=== PATIENT | female | born 1950 | race Caucasian/White ===

== ENCOUNTER 2016-06-27 14:05 | Inpatient (IN) ==
[2016-06-27 18:00] LABS: Basophils % 0.3 % (0.0-0.8); Eosinophils # 0.1 10*3/uL (0.0-0.87); Eosinophils % 1.7 % (0.00-10.9); Hematocrit 40.7 VOL% (35.7-47.0); Hemoglobin 13.3 GM/DL (12.0-16.0); Immature Granulocytes % 0.2 %; Immature Granulocytes Absolute 0.01 #; Lymphocytes % 32.6 % (21.3-54.2); Mean Corpuscular HGB Conc 32.7 GM/DL (32-36); Mean Corpuscular Hemoglobin 31 PG (27-34); Mean Corpuscular Volume 93.8 FL (87-102); Mean Platelet Volume 9.3 FL (9.6-12.0); Monocytes # 0.6 10*3/uL (0.11-0.8); Monocytes % 9.9 % (1.7-12.7); Neutrophils # 3.3 10*3/uL (1.4-7.4); Neutrophils % 55.3 % (38.7-73.9); Platelet Count 221 T/CUMM (130-400); Red Blood Count 4.34 MC/CUMM (3.8-5.5); Red Cell Distribution Width 12.1 % (9.3-17.3)
[2016-06-27 18:10] LABS: PT Patient Result 10.9 SECS
[2016-06-27 18:21] LABS: Albumin 3.6 G/DL (3.4-5.0); Bilirubin,Total 0.7 MG/DL (0.2-1.0); Calcium 9.2 MG/DL (8.5-10.1); Magnesium 2.1 MG/DL (1.8-2.4); Osmolality,Calculated 281.7 MOS/KG (273-304); Total Protein 6.8 G/DL (6.4-8.3)
--- NOTE | 2016-06-27 18:38 | Emergency Department Note ---
Josemanuel Toscano Hilary, am scribing for, and in the presence of, Clay Walsh MD 16:59. Jillian Toscano Phillip K, MD, personally performed the services described in this documentation, ascribed by Tatianna Abernathy in my presence, and it is both accurate and complete 838 . Arrival - Arrival Chief Complaint: GI Bleed/Rectal Stated Complaint: bleeding from rectum ED Nursing Triage Note: PT REPORTS BRIGHT RED RECTAL BLEEDING AFTER BOWEL MOVEMENT, ONSET APPROX 1 HOUR BELT NOTCHER. PT HAD THIS HAPPEN 1 WEEK AGO ALSO AND WAS SEEN BY DR BARCENAS- STATES HE TOOK HER OFF ELIQUIS AT THAT TIME. PT C/O LOWER BACK PAIN Mode of Arrival: Ambulatory Limitations: No Limitations Source: Patient, RN Notes Reviewed - History of Present Illness HPI Narrative: Pt is a 65 y/o female presenting to the ED with c/o of rectal bleeding onset of this afternoon. She states that she had this happen a week ago and was seen by Dr. Barcenas. Pt confirms lower back pain and being thirsty but denies, N/V, abdominal pain or dizziness. She has has a PMHx of Hemorrhoids. No other complaints or problems stated in the ED. Onset (ago): hour(s) Date of Last Menstrual Period: HYST Allergies/Adverse Reactions: Allergies Allergy/AdvReac Type Severity Reaction Status Date / Time STEROIDS AdvReac Confusion Uncoded 06/27/16 14:23 Home Medications: Home Medications Medication Instructions Recorded Confirmed Type Aspirin [Ecotrin] 324 mg PO DAILY 09/11/14 06/27/16 History Diclofenac Sodium Tab [Voltaren] 75 mg PO BID 09/11/14 06/27/16 History Imipramine [Tofranil] 150 mg PO BEDTIME 09/11/14 06/27/16 History LORazepam [Lorazepam] 1 mg PO PRN PRN 09/11/14 06/27/16 History Pravastatin [Pravachol] 20 mg PO BEDTIME 09/11/14 06/27/16 History rOPINIRole [Requip] 3 mg PO BEDTIME 09/11/14 06/27/16 History Levothyroxine Tab [Synthroid Tab] 88 mcg PO DAILY 06/27/16 06/27/16 History Magnesium Chloride [Magnesium Dr] 64 mg PO BID 06/27/16 06/27/16 History Nebivolol [Bystolic] 10 mg PO DAILY 06/27/16 06/27/16 History Sotalol HCl [Sotalol] 160 mg PO BID 06/27/16 06/27/16 History Review of System - Review of System 12 point system: reviewed and no additional remarkable complaints except as stated - Review of System Cardiovascular: Absent: chest pain Gastrointestinal: Present: hematochezia. Absent: abdominal pain, nausea, vomiting Musculoskeletal: Present: lower back pain Neurological: Absent: other (Dizziness) Medical,Surgical,& Family Hx - Medical History Psychological: History of: Depression Neurology: No history of: Seizures HEENT: Comment Only: Eye Problem (GLASSES) Endocrine: History of: Dyslipidemia Rheumatology: History of;: Rheumatological Problems Genitourinary: History of: Bladder Problem (INCONTIENCE), Kidney Stones Gastrointestinal: History of: Gastrointestinal Bleed, Hemorrhoids, GI Problems ( HIATAL HERNIA) Musculoskeletal: History of: Herniated Disk, Osteoporosis, Musculoskeletal Problems (SPINAL STENOSIS, BULGING DISKS) Reproductive: History of: Ovarian Cysts - Surgical History HEENT Surgeries: Surgical HX of: Eye Surgery (BILATERAL CATARACT), Tonsilectomy & Adenoidectomy Abdominal Surgeries: Surgical HX of: Abdominal Surgery, Appendectomy, Cholecystectomy, Colonoscopy, EGD Reproductive Surgeries: Surgical HX of;: Breast Surgery (RIGHT LUMPECTOMY), Genitourinary Surgery (BLADDER SLING), Gynecologic Surgery, Hysterectomy Orthopedic Surgeries: Surgical HX of;: Total Knee Replacement (RIGHT KNEE) - Family History Family History: Reports;: Family Cancer (BROTHER), Family Diabetes (SON), Family Heart Disease (FATHER) - Social History Smoking Status: Never smoker Frequency of Alcohol Use: None Type of Drug Use: None Exam Vital Signs: Vital Signs Temperature 97.6 F 06/27/16 14:19 Pulse Rate 59 L 06/27/16 14:19 Respiratory Rate 16 06/27/16 14:19 Blood Pressure 109/72 06/27/16 14:19 O2 Sat by Pulse Oximetry 97 06/27/16 14:19 - General General appearance: alert, in no apparent distress - Head Head exam: Present: atraumatic, normocephalic - Eye Eye exam: Present: normal appearance, PERRL, EOMI - ENT ENT exam: Present: mucous membranes moist, TM's normal bilaterally. Absent: mucous membranes dry - Neck Neck exam: Present: full ROM, trachea midline. Absent: tenderness, meningismus , lymphadenopathy, thyromegaly - Chest Chest inspection: Present: symmetric chest wall rise. Absent: tenderness - Respiratory Respiratory exam: Present: normal lung sounds bilaterally. Absent: respiratory distress - Cardiovascular Cardiovascular exam: Present: regular rate, normal rhythm, normal heart sounds. Absent: murmur, rubs, gallop - Abdominal Exam Abdominal exam: Present: soft, normal bowel sounds. Absent: distention, tenderness - Rectal Exam Rectal exam: Present: heme (+) stool, hemorrhoids (Hemorrhidal tag but no bleeding) - Extremities Exam Extremities exam: Present: full ROM. Absent: tenderness - Back Exam Back exam: Present: full ROM. Absent: tenderness - Neurological Exam Neurological exam: Present: alert, oriented X3, CN II-XII intact. Absent: motor sensory deficit - Psychiatric Psychiatric exam: Present: normal affect, normal mood - Skin Skin exam: Present: warm, dry, intact, normal color. Absent: rash Results - Labs CBC & BMP: 06/27/16 17:50 06/27/16 17:50 Lab Results: I have reviewed the patients labs Labs: Laboratory Tests 06/27/16 17:50 WBC 6.0 RBC 4.34 Hgb 13.3 Hct 40.7 MPV 9.3 L Disposition Clinical Impression: Lower gastrointestinal hemorrhage, Dehydration Case discussed with: patient, patient's family Disposition: Still a Patient Condition: Guarded Additional Instructions: Admitted to the hospitalist for serial H&H's. If bleeding stops patient will need a colonoscope as an outpatient.
[2016-06-27] MEDS ORDERED: SODIUM CHLORIDE 0.9% 500 ML IV STA (18:39)
--- NOTE | 2016-06-27 19:29 | Hospitalist History & Physical ---
Assessment and Plan (1) History of atrial fibrillation Status: Acute Current Visit: Yes (2) Osteoarthritis of left knee Status: Acute Current Visit: No (3) Lower gastrointestinal hemorrhage Status: Acute Assessment and plan: Our plan for this patient will be admitting her through the ER. We will consult GI and monitor hemoglobin and hematocrit every 6 hours. Will transfuse as needed. Her H&H is normal value currently. Continue home meds as of appropriate but hold her Eliquis. Current Visit: Yes History of Present Illness Chief complaint: Bloody bowel movement History of present illness: Ms. Booth is a 65 year old female who has been experiencing bloody bowel movements off and on for a week. She went to go see her primary care doctor which is Dr. Barber. She had her blood thinner stopped that she take secondary for atrial fibrillation. She was supposed to go see him this Monday but she had a bloody bowel movement today. She was found to have gross blood on rectal exam per ER physician and I was consulted to admit her Home Medications Medication Instructions Recorded Confirmed Type Aspirin [Ecotrin] 324 mg PO DAILY 09/11/14 06/27/16 History Diclofenac Sodium Tab [Voltaren] 75 mg PO BID 09/11/14 06/27/16 History Imipramine [Tofranil] 150 mg PO BEDTIME 09/11/14 06/27/16 History LORazepam [Lorazepam] 1 mg PO PRN PRN 09/11/14 06/27/16 History Pravastatin [Pravachol] 20 mg PO BEDTIME 09/11/14 06/27/16 History rOPINIRole [Requip] 3 mg PO BEDTIME 09/11/14 06/27/16 History Levothyroxine Tab [Synthroid Tab] 88 mcg PO DAILY 06/27/16 06/27/16 History Magnesium Chloride [Magnesium Dr] 64 mg PO BID 06/27/16 06/27/16 History Nebivolol [Bystolic] 10 mg PO DAILY 06/27/16 06/27/16 History Sotalol HCl [Sotalol] 160 mg PO BID 06/27/16 06/27/16 History Allergies Allergy/AdvReac Type Severity Reaction Status Date / Time STEROIDS AdvReac Confusion Uncoded 06/27/16 14:23 Medical,Surgical,& Family Hx - Medical History Psychological: History of: Depression Neurology: No history of: Seizures HEENT: Comment Only: Eye Problem (GLASSES) Endocrine: History of: Dyslipidemia Rheumatology: History of;: Rheumatological Problems Genitourinary: History of: Bladder Problem (INCONTIENCE), Kidney Stones Gastrointestinal: History of: Gastrointestinal Bleed, Hemorrhoids, GI Problems ( HIATAL HERNIA) Musculoskeletal: History of: Herniated Disk, Osteoporosis, Musculoskeletal Problems (SPINAL STENOSIS, BULGING DISKS) Reproductive: History of: Ovarian Cysts - Surgical History HEENT Surgeries: Surgical HX of: Eye Surgery (BILATERAL CATARACT), Tonsilectomy & Adenoidectomy Abdominal Surgeries: Surgical HX of: Abdominal Surgery, Appendectomy, Cholecystectomy, Colonoscopy, EGD Reproductive Surgeries: Surgical HX of;: Breast Surgery (RIGHT LUMPECTOMY), Genitourinary Surgery (BLADDER SLING), Gynecologic Surgery, Hysterectomy Orthopedic Surgeries: Surgical HX of;: Total Knee Replacement (RIGHT KNEE) - Family History Family History: Reports;: Family Cancer (BROTHER), Family Diabetes (SON), Family Heart Disease (FATHER) - Social History Smoking Status: Never smoker Frequency of Alcohol Use: None Type of Drug Use: None 12 point system: reviewed and no additional remarkable complaints except as stated Exam - Constitutional Vitals: Period Temp Pulse Resp BP Sys/Chacon Pulse Ox Last 24 Hr 97.6 F 59 16 109/72 97 - General General appearance: alert, in no apparent distress - Head Head exam: Present: atraumatic, normocephalic - Eye Eye exam: Present: normal appearance, PERRL, EOMI - ENT ENT exam: Present: mucous membranes moist, TM's normal bilaterally. - Neck Neck exam: Present: full ROM, trachea midline. - Chest Chest inspection: Present: symmetric chest wall rise. Absent: tenderness - Respiratory Respiratory exam: Present: normal lung sounds bilaterally. Absent: respiratory distress - Cardiovascular Cardiovascular exam: Present: regular rate, normal rhythm, normal heart sounds. - Abdominal Exam Abdominal exam: Present: soft, normal bowel sounds. - Rectal Exam Rectal exam: Present: heme (+) stool, hemorrhoids - Extremities Exam Extremities exam: Present: full ROM. Absent: tenderness - Back Exam Back exam: Present: full ROM. Absent: tenderness - Neurological Exam Neurological exam: Present: alert, oriented X3, CN II-XII intact. - Psychiatric Psychiatric exam: Present: normal affect, normal mood - Skin Skin exam: Present: warm, dry, intact, normal color. Absent: rash Results - Labs CBC & BMP: 06/27/16 17:50 06/27/16 17:50 Quality Measures - VTE Contraindication to Pharmacological VTE Prophylaxis: Active Bleeding
--- NOTE | 2016-06-27 19:29 | EKG Report ---
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
[2016-06-27] MEDS: SOTALOL 80 MG TABLET PO SCH (20:43)
[2016-06-27] MEDS: PRAVASTATIN 20 MG TABLET PO SCH (20:43)
[2016-06-27] MEDS: PANTOPRAZOLE 40 MG VIAL IV SCH (20:43)
[2016-06-27] MEDS: MAGNESIUM CHLORIDE 64 MG TABLET PO SCH (20:43)
[2016-06-27] MEDS: IMIPRAMINE 50 MG TABLET PO SCH (20:50)
[2016-06-27] MEDS: rOPINIRole 1 MG TABLET PO SCH (20:51)
[2016-06-27] MEDS ORDERED: DICLOFENAC SODIUM 75 MG TABLET PO SCH (21:00)
[2016-06-27 22:43] LABS: Hematocrit 41.4 VOL% (35.7-47.0); Hemoglobin 13.6 GM/DL (12.0-16.0)
[2016-06-28 05:37] LABS: Hematocrit 39.3 VOL% (35.7-47.0); Hemoglobin 12.6 GM/DL (12.0-16.0)
[2016-06-28] MEDS: SOTALOL 80 MG TABLET PO SCH ×2 (09:02→20:39)
[2016-06-28] MEDS: LEVOTHYROXINE 88 MCG TABLET PO SCH (09:02)
[2016-06-28] MEDS: NEBIVOLOL 10 MG TABLET PO SCH (09:03)
[2016-06-28] MEDS: MAGNESIUM CHLORIDE 64 MG TABLET PO SCH ×2 (09:03→20:39)
[2016-06-28] MEDS: PANTOPRAZOLE 40 MG VIAL IV SCH ×2 (09:04→20:39)
[2016-06-28 10:30] LABS: Hematocrit 36.7 VOL% (35.7-47.0)
--- NOTE | 2016-06-28 11:12 | Gastrointestinal Consult Note ---
<Roxanna Olivier - Last Filed: 06/28/16 11:05> Assessment and Plan (1) Lower gastrointestinal hemorrhage Status: Acute Assessment and plan: 06/28-Sudden onset of bright red rectal bleeding, w/o abd pain. ELiquis held x 1 week. Last C-scope 3-4 years ago. Continue to monitor HH. Plan and addendum to follow by Dr Lopez. Current Visit: Yes History of Present Illness Chief complaint: Rectal bleed History of present illness: Ms. Booth is a 65 year old female who presented to the hospital with onset of rectal bleeding. Pt states that two weeks ago she had a bowel movement with some bright red blood mixed in with her stool. She states that this continued off and on for several days until she called her PCP. She states she went to see Dr Barcenas for this and her Eliquis was held. She states that the rectal bleeding continued over this last week in small amounts however on yesterday she had a large amount of bleeding with clots. She states it was mixed in with the stool. She also reports some mid abdominal cramping but states it was no different than her usual sensation to defecate. She states that she has a history of IBS and has diarrhea episodes often. She wears an incontinence brief due to this and reports some nocturnal incontinence as well. She denies any recent weight loss, fever, chills, nausea or vomiting. States that she takes Eliquis for atrial fibrillation and has never had a rectal bleed in the past other than assoiciated with her hemorrhoids which she has surgical repaired when she was younger. She is noted to have [place] C[place] [address] Dc with findings of internal hemorrhoids only. She states she had another done in [place] 3-4 years ago after her brother was diagnosed with colon cancer. She was told to return in 10 years following that scope. Pt states she has no known history of diverticulosis. BUN/Cr ratio 34. She does take Aspirin and Voltaren as needed. Hemoglobin 12.6. Home Medications Medication Instructions Recorded Confirmed Type Aspirin [Ecotrin] 324 mg PO DAILY 09/11/14 06/27/16 History Diclofenac Sodium Tab [Voltaren] 75 mg PO BID 09/11/14 06/27/16 History Imipramine [Tofranil] 150 mg PO BEDTIME 09/11/14 06/27/16 History LORazepam [Lorazepam] 1 mg PO PRN PRN 09/11/14 06/27/16 History Pravastatin [Pravachol] 20 mg PO BEDTIME 09/11/14 06/27/16 History rOPINIRole [Requip] 3 mg PO BEDTIME 09/11/14 06/27/16 History Levothyroxine Tab [Synthroid Tab] 88 mcg PO DAILY 06/27/16 06/27/16 History Magnesium Chloride [Magnesium Dr] 64 mg PO BID 06/27/16 06/27/16 History Nebivolol [Bystolic] 10 mg PO DAILY 06/27/16 06/27/16 History Sotalol HCl [Sotalol] 160 mg PO BID 06/27/16 06/27/16 History Allergies Allergy/AdvReac Type Severity Reaction Status Date / Time STEROIDS AdvReac Confusion Uncoded 06/27/16 14:23 Medical,Surgical,& Family Hx - Medical History Psychological: History of: Depression Neurology: No history of: Seizures HEENT: Comment Only: Eye Problem (GLASSES) Endocrine: History of: Dyslipidemia Rheumatology: History of;: Rheumatological Problems Genitourinary: History of: Bladder Problem (INCONTIENCE), Kidney Stones Gastrointestinal: History of: Gastrointestinal Bleed, Hemorrhoids, GI Problems ( HIATAL HERNIA) Musculoskeletal: History of: Herniated Disk, Osteoporosis, Musculoskeletal Problems (SPINAL STENOSIS, BULGING DISKS) Hematology: History of: Bleeding Problems (Rectal bleeding) Reproductive: History of: Ovarian Cysts - Surgical History HEENT Surgeries: Surgical HX of: Eye Surgery (BILATERAL CATARACT), Tonsilectomy & Adenoidectomy Abdominal Surgeries: Surgical HX of: Abdominal Surgery, Appendectomy, Cholecystectomy, Colonoscopy, EGD Reproductive Surgeries: Surgical HX of;: Breast Surgery (RIGHT LUMPECTOMY), Genitourinary Surgery (BLADDER SLING), Gynecologic Surgery, Hysterectomy Orthopedic Surgeries: Surgical HX of;: Total Knee Replacement (RIGHT KNEE) - Family History Family History: Reports;: Family Cancer (BROTHER), Family Diabetes (SON), Family Heart Disease (FATHER) - Social History Smoking Status: Never smoker Frequency of Alcohol Use: None Type of Drug Use: None 12 point system: reviewed and no additional remarkable complaints except as stated - Constitutional Constitutional: Present: as per HPI - EENT Eyes: Present: as per HPI Ears: Present: as per HPI Nose, mouth and throat: Present: as per HPI - Cardiovascular Cardiovascular: Present: as per HPI - Respiratory Respiratory: Present: as per HPI - Gastrointestinal Gastrointestinal: Present: as per HPI, diarrhea, hematochezia - Genitourinary Genitourinary: Present: as per HPI - Musculoskeletal Musculoskeletal: Present: as per HPI - Neurological Neurological: Present: as per HPI - Psychiatric Psychiatric: Present: as per HPI - Endocrine Endocrine: Present: as per HPI - Hematologic/Lymphatic Hematologic/Lymphatic: Present: as per HPI Exam - Constitutional Vitals: Period Temp Pulse Resp BP Sys/Chacon Pulse Ox Last 24 Hr 96.6 F-97.9 F 56- 14-20 105-130/50-61 98-100 General appearance: normal weight, no acute distress - Head Head exam: Present: normal inspection, normocephalic - Eye Eye exam: Present: other (lids and conjunctiva unremarkable). Absent: scleral icterus - ENT ENT exam: Present: normal exam, normal oropharynx - Neck Neck exam: Present: normal inspection - Respiratory Respiratory exam: Present: clear to auscultation bilaterally. Absent: rales, rhonchi, wheezes - Cardiovascular Cardiovascular exam: Present: regular rate and rhythm. Absent: diastolic murmur , JVD, systolic murmur - GI/Abdominal GI/Abdominal exam: Present: normal bowel sounds, soft. Absent: ascites, distended, mass, organomegaly, tenderness - Extremities Exam Extremities exam: Present: normal inspection, full ROM - Back Exam Back exam: Present: normal inspection - Neurological Exam Neurological exam: Present: alert, oriented X3 - Psychiatric Psychiatric exam: Present: normal affect, normal mood - Skin Skin exam: Present: normal color, warm, dry Results - Labs CBC & BMP: 06/28/16 10:22 06/27/16 17:50 Lab Results: I have reviewed the past 24 hour labs Quality Measures - VTE Contraindication to Pharmacological VTE Prophylaxis: Active Bleeding <Chad Lopez - Last Filed: 06/28/16 13:16> History of Present Illness History of present illness: Ms. Booth is a 65 year old female Exam - Constitutional Vitals: Period Temp Pulse Resp BP Sys/Chacon Pulse Ox Last 24 Hr 96.6 F-97.9 F 56- 14-20 105-130/50-61 98-100 Results - Labs CBC & BMP: 06/28/16 10:22 06/27/16 17:50
[2016-06-28] MEDS ORDERED: BISACODYL 5 MG TABLET PO ONE (12:00)
--- NOTE | 2016-06-28 12:10 | Hospitalist Progress Note ---
Assessment and Plan (1) Lower gastrointestinal hemorrhage Status: Acute Current Visit: Yes (2) Hypothyroid Status: Chronic Current Visit: Yes (3) Hypertension Status: Chronic Current Visit: Yes Hospitalist: Subjective Interval history: Doing well. No episodes of bleeding since admission. Does reports diarrhea and a history of IBS. H/H has remained stable since admission, will continue to monitor. GI consulted. Exam - Constitutional Vitals: Period Temp Pulse Resp BP Sys/Chacon Pulse Ox Last 24 Hr 96.6 F-97.9 F 56-95 14-20 105-130/50-61 98-100 General appearance: over weight - Head Head exam: Present: normocephalic, atraumatic - Eye Eye exam: Present: EOMI Pupils: Present: ROXY - ENT ENT exam: Present: normal exam - Neck Neck exam: Present: normal inspection - Respiratory Respiratory exam: Present: clear to auscultation bilaterally. Absent: rhonchi, wheezes - Cardiovascular Cardiovascular exam: Present: regular rate and rhythm - GI/Abdominal GI/Abdominal exam: Present: normal bowel sounds, soft. Absent: tenderness, rebound - Extremities Exam Extremities exam: Present: normal inspection - Back Exam Back exam: Present: normal inspection - Neurological Exam Neurological exam: Present: alert, oriented X3 - Psychiatric Psychiatric exam: Present: normal affect, normal mood - Skin Skin exam: Present: warm, intact Results - Labs CBC & BMP: 06/28/16 10:22 06/27/16 17:50 Quality Measures - VTE Contraindication to Pharmacological VTE Prophylaxis: Active Bleeding
[2016-06-28] MEDS: DICLOFENAC SODIUM 75 MG TABLET PO SCH ×2 (12:43→20:41)
[2016-06-28 16:51] LABS: Hematocrit 41.3 VOL% (35.7-47.0); Hemoglobin 13.3 GM/DL (12.0-16.0)
[2016-06-28] MEDS ORDERED: POLYETHYLENE GLYCOL POWDER 255 GM BOTTLE PO ONE (18:00)
[2016-06-28] MEDS: rOPINIRole 1 MG TABLET PO SCH (20:39)
[2016-06-28] MEDS: IMIPRAMINE 50 MG TABLET PO SCH (20:39)
[2016-06-28] MEDS: PRAVASTATIN 20 MG TABLET PO SCH (20:39)
[2016-06-28] MEDS ORDERED: MAGNESIUM CITRATE 300 ML BOTTLE PO ONE (21:00)
[2016-06-29 05:31] LABS: Basophils % 0.4 % (0.0-0.8); Eosinophils # 0.1 10*3/uL (0.0-0.87); Eosinophils % 2.6 % (0.00-10.9); Hematocrit 39.3 VOL% (35.7-47.0); Hemoglobin 12.7 GM/DL (12.0-16.0); Immature Granulocytes % 0.2 %; Immature Granulocytes Absolute 0.01 #; Lymphocytes # 1.7 10*3/uL (1.4-4.0); Lymphocytes % 31.5 % (21.3-54.2); Mean Corpuscular HGB Conc 32.3 GM/DL (32-36); Mean Corpuscular Hemoglobin 31 PG (27-34); Mean Corpuscular Volume 95.6 FL (87-102); Mean Platelet Volume 9.3 FL (9.6-12.0); Monocytes # 0.6 10*3/uL (0.11-0.8); Monocytes % 11.6 % (1.7-12.7); Neutrophils # 2.9 10*3/uL (1.4-7.4); Neutrophils % 53.7 % (38.7-73.9); Platelet Count 207 T/CUMM (130-400); Red Blood Count 4.11 MC/CUMM (3.8-5.5); Red Cell Distribution Width 11.9 % (9.3-17.3); White Blood Count 5.4 T/CUMM (4-12)
[2016-06-29 06:11] LABS: Calcium 9.1 MG/DL (8.5-10.1); Magnesium 2.1 MG/DL (1.8-2.4); Osmolality,Calculated 284.8 MOS/KG (273-304); Potassium 4.5 MMOL/L (3.5-5.1)
--- NOTE | 2016-06-29 12:04 | History and Physical Update ---
History and Physical Update - Physical Exam Mental Status: alert and oriented Heart: regular rate and rhythm Lung: clear to auscultation Abdomen: within normal limits Vitals: within normal limits
--- NOTE | 2016-06-29 12:06 | Operative Note ---
Date of procedure: 06/29/16 Pre-op diagnosis: Hematochezia Procedure: Colonoscopy 65-year-old female with persistent hematochezia now for colonoscopy to further evaluate. Informed consent was obtained Patient was sedated with MAC anesthesia per anesthesia protocol. Patient placed in left lateral decubitus position digital exam was normal no rectal masses were felt. The lubricated Olympus flexible video colonoscope was inserted and canal advanced under direct vision level cecum. Findings : Withdrawal time 7 minutes Cecum-normal identified the ileocecal valve appendiceal orifice. Terminal ileum was intubated and normal. Ascending colon-normal Transverse colon-normal Descending colon-mild diverticulosis Sigmoid colon-moderate diverticulosis Rectum is normal to direct retroflexed views. No blood was seen throughout the colon. Patient discharge recovery in good condition Postop diagnosis: 1. Diverticulosis coli-likely source for hematochezia exacerbated by anticoagulation. Will need to proceed with EGD in a.m. to look for additional sources of GI bleeding. Anesthesia: MAC Surgeon / Physician: Chad Lopez Estimated blood loss: none Specimens: none sent Condition: stable Disposition: post procedure unit Results - Labs CBC & BMP: 06/29/16 05:07 06/29/16 05:07 Discharge Plan - Discharge Medications No Action Diclofenac Sodium Tab [Voltaren] 75 mg PO BID rOPINIRole [Requip] 3 mg PO BEDTIME Imipramine [Tofranil] 150 mg PO BEDTIME Aspirin [Ecotrin] 324 mg PO DAILY Pravastatin [Pravachol] 20 mg PO BEDTIME LORazepam [Lorazepam] 1 mg PO PRN PRN PRN Reason: Anxiety Nebivolol [Bystolic] 10 mg PO DAILY Magnesium Chloride [Magnesium Dr] 64 mg PO BID Levothyroxine Tab [Synthroid Tab] 88 mcg PO DAILY Sotalol HCl [Sotalol] 160 mg PO BID - Follow Up or Referral - Forms/Instructions
--- NOTE | 2016-06-29 12:10 | Anesthesia ---
Anesthesia Post OP - Post Ansesthetic Evaluation Patient seen in post op: Yes Resp: within normal limits CV: within normal limits Mental: within normal limits Temp: within normal limits Gppy-Sg-Zufyjcbed: within normal limits Nausea and Vomiting: within normal limits Pain: within normal limits
[2016-06-29] MEDS: MAGNESIUM CHLORIDE 64 MG TABLET PO SCH ×2 (13:00→21:25)
[2016-06-29] MEDS: DICLOFENAC SODIUM 75 MG TABLET PO SCH ×2 (13:00→21:33)
[2016-06-29] MEDS: SOTALOL 80 MG TABLET PO SCH ×2 (13:00→21:24)
--- NOTE | 2016-06-29 15:11 | Hospitalist Progress Note ---
Assessment and Plan (1) Lower gastrointestinal hemorrhage Status: Acute Current Visit: Yes (2) Hypothyroid Status: Chronic Current Visit: Yes (3) Hypertension Status: Chronic Current Visit: Yes Hospitalist: Subjective Interval history: No acute events overnight. Denies repeat episodes of bleeding. H/H has remained stable. Colonoscopy today with diverticulosis, no active bleeding. Plan is for EGD tomorrow. Exam - Constitutional Vitals: Period Temp Pulse Resp BP Sys/Chacon Pulse Ox Last 24 Hr 96.8 F-97.6 F 54-64 16-23 115-154/57-89 94-100 General appearance: over weight - Head Head exam: Present: normocephalic, atraumatic - Eye Eye exam: Present: EOMI Pupils: Present: ROXY - ENT ENT exam: Present: normal exam - Neck Neck exam: Present: normal inspection - Respiratory Respiratory exam: Present: clear to auscultation bilaterally. Absent: rhonchi, wheezes - Cardiovascular Cardiovascular exam: Present: regular rate and rhythm - GI/Abdominal GI/Abdominal exam: Present: normal bowel sounds, soft. Absent: tenderness, rebound - Extremities Exam Extremities exam: Present: normal inspection - Back Exam Back exam: Present: normal inspection - Neurological Exam Neurological exam: Present: alert, oriented X3 - Psychiatric Psychiatric exam: Present: normal affect, normal mood - Skin Skin exam: Present: warm, intact Results - Labs CBC & BMP: 06/29/16 05:07 06/29/16 05:07 Quality Measures - VTE Contraindication to Pharmacological VTE Prophylaxis: Active Bleeding
[2016-06-29] MEDS: PANTOPRAZOLE 40 MG VIAL IV SCH ×2 (17:07→21:23)
[2016-06-29] MEDS: NEBIVOLOL 10 MG TABLET PO SCH (17:16)
[2016-06-29] MEDS: LEVOTHYROXINE 88 MCG TABLET PO SCH (17:16)
[2016-06-29] MEDS: rOPINIRole 1 MG TABLET PO SCH (21:23)
[2016-06-29] MEDS: PRAVASTATIN 20 MG TABLET PO SCH (21:24)
[2016-06-29] MEDS: IMIPRAMINE 50 MG TABLET PO SCH (21:26)
[2016-06-29] MEDS: LORazepam 1 MG TABLET PO PRN (21:32)
[2016-06-30 04:46] LABS: Basophils % 0.2 % (0.0-0.8); Eosinophils # 0.1 10*3/uL (0.0-0.87); Eosinophils % 1.7 % (0.00-10.9); Hematocrit 36.8 VOL% (35.7-47.0); Hemoglobin 11.9 GM/DL (12.0-16.0); Immature Granulocytes % 0.2 %; Immature Granulocytes Absolute 0.01 #; Lymphocytes # 1.5 10*3/uL (1.4-4.0); Lymphocytes % 32.5 % (21.3-54.2); Mean Corpuscular HGB Conc 32.3 GM/DL (32-36); Mean Corpuscular Hemoglobin 30 PG (27-34); Mean Corpuscular Volume 93.2 FL (87-102); Mean Platelet Volume 9.6 FL (9.6-12.0); Monocytes # 0.4 10*3/uL (0.11-0.8); Monocytes % 8.9 % (1.7-12.7); Neutrophils # 2.7 10*3/uL (1.4-7.4); Neutrophils % 56.5 % (38.7-73.9); Platelet Count 189 T/CUMM (130-400); Red Blood Count 3.95 MC/CUMM (3.8-5.5); Red Cell Distribution Width 11.6 % (9.3-17.3); White Blood Count 4.7 T/CUMM (4-12)
[2016-06-30] MEDS ORDERED: LIDOCAINE 100 MG/5 ML SYRINGE ONE (10:03)
[2016-06-30] MEDS ORDERED: PROPOFOL 200 MG/20 ML VIAL IV ONE ×2 (10:03→12:04)
--- NOTE | 2016-06-30 11:09 | Operative Note ---
Date of procedure: 06/30/16 Pre-op diagnosis: Acute GI bleed Procedure: EGD with biopsy 65-year-old female admitted with acute GI bleeding complicated by ongoing anticoagulant therapy. Colonoscopy revealed diverticulosis but no clear source of blood loss. Patient is taking nonsteroidals is now for upper endoscopy to further evaluate. Informed symptoms obtained the patient She was sedated with MAC anesthesia per anesthesia protocol. Patient placed in left lateral decubitus position the Olympus flexible video upper endoscope was inserted lower cavity under direct vision the esophagus intubated. Findings: Esophagus-normal proximal mid esophageal mucosa distal esophagus with small hiatal hernia. No esophagitis, Olvera's or varices were seen. Stomach-normal insufflation normal mucosa to direct and retroflexed views of the body fundus and cardia the stomach. In the antrum of the stomach there are multiple superficial ulcers all marcelino base with no visible vessels. No stigmata of recent bleeding noted. At least 6 ulcers measuring 4-5 mm each are visible. Pylorus-normal Duodenum-normal for the bulb and duodenum to the third portion of the duodenum. Scope withdrawn back into the stomach biopsies of the gastric lesions were taken. The procedure terminated placed our procedure well she is discharged recovery in good condition. Postoperative diagnosis: 1. Acute peptic ulcer disease likely secondary to nonsteroidal use. Continue twice daily proton pump inhibitors for 2 months. Plan repeat EGD in 2 months to verify ulcer healing. Follow-up pathology positive for H. pylori will treat Hold on restarting her Eliquis for an additional 5 days then resume it for her A. fib. Increase diet today and plan discharge tomorrow if hematocrit is stable. 2. Gastroesophageal reflux disease-antireflux precautions and PPI treatment as discussed Anesthesia: [facility] [place] Surgeon / Physician: Chad Lopez Estimated blood loss: none Specimens: other (Acute antral gastric ulcers) Condition: stable Disposition: post procedure unit Results - Labs CBC & BMP: 06/30/16 04:09 06/29/16 05:07 Discharge Plan - Discharge Medications No Action Diclofenac Sodium Tab [Voltaren] 75 mg PO BID rOPINIRole [Requip] 3 mg PO BEDTIME Imipramine [Tofranil] 150 mg PO BEDTIME Aspirin [Ecotrin] 324 mg PO DAILY Pravastatin [Pravachol] 20 mg PO BEDTIME LORazepam [Lorazepam] 1 mg PO PRN PRN PRN Reason: Anxiety Nebivolol [Bystolic] 10 mg PO DAILY Magnesium Chloride [Magnesium Dr] 64 mg PO BID Levothyroxine Tab [Synthroid Tab] 88 mcg PO DAILY Sotalol HCl [Sotalol] 160 mg PO BID - Follow Up or Referral - Forms/Instructions
--- NOTE | 2016-06-30 11:12 | Anesthesia ---
Anesthesia Post OP - Post Ansesthetic Evaluation Patient seen in post op: Yes Resp: within normal limits CV: within normal limits Mental: within normal limits Temp: within normal limits [id number]: within normal limits Nausea and Vomiting: within normal limits Pain: within normal limits
[2016-06-30] MEDS ORDERED: LIDOCAINE 1% 5 ML VIAL ONE (12:04)
[2016-06-30] MEDS: LEVOTHYROXINE 88 MCG TABLET PO SCH (12:49)
[2016-06-30] MEDS: NEBIVOLOL 10 MG TABLET PO SCH (12:49)
[2016-06-30] MEDS: SOTALOL 80 MG TABLET PO SCH ×2 (12:49→20:24)
[2016-06-30] MEDS: PANTOPRAZOLE 40 MG VIAL IV SCH ×2 (12:49→20:25)
[2016-06-30] MEDS: DICLOFENAC SODIUM 75 MG TABLET PO SCH ×2 (12:50→12:56)
[2016-06-30] MEDS: MAGNESIUM CHLORIDE 64 MG TABLET PO SCH ×2 (12:50→20:24)
--- NOTE | 2016-06-30 16:15 | Hospitalist Progress Note ---
Assessment and Plan (1) Lower gastrointestinal hemorrhage Status: Acute Current Visit: Yes (2) Hypothyroid Status: Chronic Current Visit: Yes (3) Hypertension Status: Chronic Current Visit: Yes Hospitalist: Subjective Interval history: Patient doing well, feels better. EGD today with acute peptic ulcer disease. Plan for ppi bid. Will monitor counts in am, discharge if stable. Exam - Constitutional Vitals: Period Temp Pulse Resp BP Sys/Chacon Pulse Ox Last 24 Hr 96.8 F-97.8 F 48-98 17-22 124-164/63-89 90-100 General appearance: over weight - Head Head exam: Present: normocephalic, atraumatic - Eye Eye exam: Present: EOMI Pupils: Present: ROXY - ENT ENT exam: Present: normal exam - Neck Neck exam: Present: normal inspection - Respiratory Respiratory exam: Present: clear to auscultation bilaterally. Absent: rhonchi, wheezes - Cardiovascular Cardiovascular exam: Present: regular rate and rhythm - GI/Abdominal GI/Abdominal exam: Present: normal bowel sounds, soft. Absent: tenderness, rebound - Extremities Exam Extremities exam: Present: normal inspection - Back Exam Back exam: Present: normal inspection - Neurological Exam Neurological exam: Present: alert, oriented X3 - Psychiatric Psychiatric exam: Present: normal affect, normal mood - Skin Skin exam: Present: warm, intact Results - Labs CBC & BMP: 06/30/16 04:09 06/29/16 05:07 Quality Measures - VTE Contraindication to Pharmacological VTE Prophylaxis: Active Bleeding
[2016-06-30] MEDS: IMIPRAMINE 50 MG TABLET PO SCH (20:24)
[2016-06-30] MEDS: rOPINIRole 1 MG TABLET PO SCH (20:24)
[2016-06-30] MEDS: LORazepam 1 MG TABLET PO PRN (20:24)
[2016-06-30] MEDS: PRAVASTATIN 20 MG TABLET PO SCH (20:24)
[2016-07-01 04:25] LABS: Basophils % 0.2 % (0.0-0.8); Eosinophils # 0.1 10*3/uL (0.0-0.87); Eosinophils % 2.4 % (0.00-10.9); Hematocrit 35.2 VOL% (35.7-47.0); Hemoglobin 11.6 GM/DL (12.0-16.0); Immature Granulocytes % 0.2 %; Immature Granulocytes Absolute 0.01 #; Lymphocytes # 1.8 10*3/uL (1.4-4.0); Lymphocytes % 42.9 % (21.3-54.2); Mean Corpuscular Hemoglobin 30 PG (27-34); Mean Corpuscular Volume 92.4 FL (87-102); Monocytes # 0.5 10*3/uL (0.11-0.8); Monocytes % 11.4 % (1.7-12.7); Neutrophils # 1.8 10*3/uL (1.4-7.4); Neutrophils % 42.9 % (38.7-73.9); Platelet Count 210 T/CUMM (130-400); Red Blood Count 3.81 MC/CUMM (3.8-5.5); Red Cell Distribution Width 11.9 % (9.3-17.3); White Blood Count 4.2 T/CUMM (4-12)
--- NOTE | 2016-07-01 09:12 | Gastrointestinal Progress Note ---
<PenelopepoloRoxanna Naa - Last Filed: 07/01/16 09:10> Assessment and Plan (1) Lower gastrointestinal hemorrhage Status: Acute Assessment and plan: 07/01-hemoglobin stable 11.6. Tolerating diet. No overt bleeding. Okay to discharge from GI standpoint. At discharge scheduled for repeat EGD in 2 months. When H. pylori pathology available we will treat if needed. Continue PPI twice daily until return for repeat EGD. Discontinue NSAID use. Hold Eliquis 5 days. Plan an addendum to follow by Dr. Lopez. 06/28-Sudden onset of bright red rectal bleeding, w/o abd pain. ELiquis held x 1 week. Last C-scope 3-4 years ago. Continue to monitor HH. Plan and addendum to follow by Dr Lopez. Current Visit: Yes Gastroenterology - PN: Subj Interval history: CC: GI bleed Pt is seen awake and alert sitting up in bed. States she is feeling well today. Denies any abdominal pain, nausea or vomiting. Denies any overt bleeding. States she is tolerating her diet well. EGD findings on yesterday noted with acute peptic ulcer disease related to her long-term Voltaren use. H. pylori pathology is still pending at present time. Hemoglobin stable 11.6. Abdomen is soft, nontender. We will repeat her EGD in 2 months and at discharge she will need to continue her PPI at twice daily. If H. pylori is positive we will notify her and treat as necessary. Recommendations also to hold her Eliquis for 5 days. ROS: Denies shortness of breath or chest pain Exam (Progress Note) - Constitutional Vitals: Period Temp Pulse Resp BP Sys/Chacon Pulse Ox Last 24 Hr 96.8 F-97.8 F 48-59 17-20 119-164/62-89 94-100 General appearance: normal weight, no acute distress - Head Head exam: Present: normal inspection, normocephalic - Eye Eye exam: Present: other (Lids and conjunctivae unremarkable). Absent: scleral icterus - ENT ENT exam: Present: normal exam - Neck Neck exam: Present: normal inspection - Respiratory Respiratory exam: Present: clear to auscultation bilaterally. Absent: rales, rhonchi, wheezes - Cardiovascular Cardiovascular exam: Present: regular rate and rhythm. Absent: diastolic murmur , JVD, systolic murmur - GI/Abdominal GI/Abdominal exam: Present: normal bowel sounds, soft. Absent: ascites, distended, mass, organomegaly, tenderness - Extremities Exam Extremities exam: Present: normal inspection, full ROM - Back Exam Back exam: Present: normal inspection - Neurological Exam Neurological exam: Present: alert, oriented X3 - Psychiatric Psychiatric exam: Present: normal affect, normal mood - Skin Skin exam: Present: normal color, warm, dry Results - Labs CBC & BMP: 07/01/16 03:14 06/29/16 05:07 Lab Results: I have reviewed the past 24 hour labs Specialty Discharge - Follow Up or Referrals Follow up with: Chad Lopez MD [Physician] - 08/29/16 8:30 am (EGD- upper scope with Dr. Lopez on August 29 at 8:30 am. Do not eat or drink anything after midnight on monday nite August 28. ) <Chad Lopez - Last Filed: 07/01/16 12:50> Exam (Progress Note) - Constitutional Vitals: Period Temp Pulse Resp BP Sys/Chacon Pulse Ox Last 24 Hr 97.3 F-97.8 F 50-56 18-20 119-141/62-67 94-95 Results - Labs CBC & BMP: 07/01/16 03:14 06/29/16 05:07
--- NOTE | 2016-07-01 09:20 | Discharge Summary ---
Hospital Course - Hospital Course Hospital Course: Ms. Booth is a 65 year old female who experienced bloody bowel movements off and on for a week. She went to go see her primary care doctor which is Dr. Barber. She had her blood thinner stopped that she takes for atrial fibrillation. She was found to have gross blood on rectal exam per ER physician. She was admitted to the hospitalist service for GI bleed. GI was consulted. Colonoscopy 06/29/16 with diverticulosis. EGD 06/30/16 acute peptic ulcer disease probably secondary to NSAID use. She will hold Eliquis for 5 days and continue PPI BID for 2 months. Her hemogoblin remained stable, she did not require a blood transfusion. She has now reached maximum benefit of inpatient stay and will be discharged home. - Time spent with patient Time with patient DS: Less than 30 minutes Diagnosis - Discharge Diagnosis (1) Lower gastrointestinal hemorrhage Status: Acute (2) Hypothyroid Status: Chronic (3) Hypertension Status: Chronic Discharge Plan - Discharge Data Condition at Discharge: Stable Discharge Diet: advance to your usual diet Activity: increase activity as tolerated Hygiene: no restrictions Driving: no restrictions Contact your physician if you experience:: fever over 101, Bleeding - Discharge Medications New Omeprazole 40 mg PO BID #60 capsule Continue rOPINIRole [Requip] 3 mg PO BEDTIME Imipramine [Tofranil] 150 mg PO BEDTIME Pravastatin [Pravachol] 20 mg PO BEDTIME LORazepam [Lorazepam] 1 mg PO PRN PRN PRN Reason: Anxiety Nebivolol [Bystolic] 10 mg PO DAILY Magnesium Chloride [Magnesium Dr] 64 mg PO BID Levothyroxine Tab [Synthroid Tab] 88 mcg PO DAILY Sotalol HCl [Sotalol] 160 mg PO BID Discontinued Diclofenac Sodium Tab [Voltaren] 75 mg PO BID Aspirin [Ecotrin] 324 mg PO DAILY - Follow Up or Referral - Forms/Instructions Exam - Constitutional Vitals: Period Temp Pulse Resp BP Sys/Chacon Pulse Ox Last 24 Hr 96.8 F-97.8 F 48-59 17-20 119-164/62-89 94-100 General appearance: over weight - Head Head exam: Present: normocephalic, atraumatic - Eye Eye exam: Present: EOMI Pupils: Present: ROXY - ENT ENT exam: Present: normal exam - Neck Neck exam: Present: normal inspection - Respiratory Respiratory exam: Present: clear to auscultation bilaterally. Absent: rhonchi, wheezes - Cardiovascular Cardiovascular exam: Present: regular rate and rhythm - GI/Abdominal GI/Abdominal exam: Present: normal bowel sounds, soft. Absent: tenderness, rebound - Extremities Exam Extremities exam: Present: normal inspection - Back Exam Back exam: Present: normal inspection - Neurological Exam Neurological exam: Present: alert, oriented X3 - Psychiatric Psychiatric exam: Present: normal affect, normal mood - Skin Skin exam: Present: warm, intact Discharge Results Labs on day of discharge: Labs from last 24 hours 07/01/16 03:14 WBC 4.2 RBC 3.81 Hgb 11.6 L Hct 35.2 L MCV 92.4 MCH 30 MCHC 33.0 RDW 11.9 Plt Count 210 MPV 10.0 Neut % (Auto) 42.9 Lymph % (Auto) 42.9 [place] % (Auto) 11.4 Eos % (Auto) 2.4 Baso % (Auto) 0.2 Neut # (Auto) 1.8 Lymph # (Auto) 1.8 [place] # (Auto) 0.5 Eos # (Auto) 0.1 Baso # (Auto) 0.0 Immature Gran % 0.2 Nucleated RBC % 0.0 Immature Gran # 0.01 Nucleated RBCs # 0.00 DS: Provider Date of admission: 06/27/16 19:05 Primary care physician: . 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
[2016-07-01] MEDS: LEVOTHYROXINE 88 MCG TABLET PO SCH (09:40)
[2016-07-01] MEDS: SOTALOL 80 MG TABLET PO SCH (09:40)
[2016-07-01] MEDS: NEBIVOLOL 10 MG TABLET PO SCH (09:41)
[2016-07-01] MEDS: MAGNESIUM CHLORIDE 64 MG TABLET PO SCH (09:41)
[2016-07-01] MEDS: PANTOPRAZOLE 40 MG VIAL IV SCH (09:41)
--- NOTE | 2016-07-01 12:25 | Pathology Report from [facility] ---
ACCESSION # : [id number] PATIENT NAME : Manjit Mejía ORDERING DR : JENNIFER RICK MD CLINICAL HX: GI Bleed POST-OP DX: Same SPECIMEN INFO: Gastric biopsy GROSS DESCRIPTION: The specimen is received in formalin labeled with the patient 's name and consists of four white-mcdowell tissue fragments collectively measuring 0.8 x 0.4 cm. Submitted in one cassette. DIAGNOSIS FOR MANJIT MEJÍA: GASTRIC BIOPSIES: Mild chronic antral gastritis with focal erosion. H.pylori not seen on special stain. SERVICE DATE: 07/01/2016 REPORT DATE: 07/01/2016 PATHOLOGIST: Taran Pettit M.D. [facility]
[2016-07-01 13:26] VITALS: BP 133/76
== END 2016-07-01 15:25 | disposition home or self-care (01) | DRG 378 ==
LOC: N.ED 14:05 → N.EDINP 19:05 → N.4E 19:40
PROVIDERS: ADMIT Internal Medicine; ATTEND Internal Medicine

== ENCOUNTER 2016-10-16 19:37 | Inpatient (IN) ==
[2016-10-16 20:24] LABS: Basophils % 0.1 % (0.0-0.8); Hemoglobin 15.6 GM/DL (12.0-16.0); Immature Granulocytes % 0.3 %; Immature Granulocytes Absolute 0.03 #; Lymphocytes # 1.2 10*3/uL (1.4-4.0); Lymphocytes % 13.3 % (21.3-54.2); Mean Corpuscular HGB Conc 34.7 GM/DL (32-36); Mean Corpuscular Hemoglobin 31 PG (27-34); Mean Corpuscular Volume 88.4 FL (87-102); Mean Platelet Volume 9.9 FL (9.6-12.0); Monocytes # 0.5 10*3/uL (0.11-0.8); Monocytes % 5.2 % (1.7-12.7); Neutrophils # 7.5 10*3/uL (1.4-7.4); Neutrophils % 81.1 % (38.7-73.9); Platelet Count 288 T/CUMM (130-400); Red Blood Count 5.09 MC/CUMM (3.8-5.5); Red Cell Distribution Width 11.9 % (9.3-17.3); White Blood Count 9.3 T/CUMM (4-12)
--- NOTE | 2016-10-16 20:32 | CT Report ---
CT head/brain wo con Indication: Altered mental status. Comparison: None. Technique: CT of the brain was performed without administration of intravenous contrast. The CT examination was performed using one or more of the following dose reduction techniques: Automatic exposure control, adjustment of the mA and kV according to patient size, use of acute or iterative reconstruction techniques. Findings: There is no evidence of acute intracranial hemorrhage, mass, or infarction. Ventricles appear within normal limits. The basal cisterns are patent. No significant abnormality is demonstrated to involve the posterior fossa or cerebellum. Orbits and globes demonstrate no evidence of significant pathology. The paranasal sinuses are clear. No significant abnormality is demonstrated to involve the mastoid air cells. The calvarium and overlying soft tissues demonstrate no evidence of acute pathology. Impression: 1. No CT evidence of acute intracranial pathology. 10/16/2016 8:27 PM PROCEDURE INTERPRETED AT [facility] DEPARTMENT OF RADIOLOGY Final Report Signed by: Dr. Venu Argueta
--- NOTE | 2016-10-16 20:33 | XRay Report ---
XR chest 2V Indication: Altered mental status. Comparison: Chest x-ray 10/04/2016. Technique: PA and lateral chest x-ray was performed. Findings: Gallbladder appears surgically absent. Heart size, mediastinal contour, and hilar structures demonstrate no significant abnormalities. The lung parenchyma is clear. Bones and soft tissues demonstrate no significant abnormalities.Kyphotic deformity of the thoracic spine is stable and likely reflects degenerative etiology. Impression: 1. No active cardiopulmonary disease. 10/16/2016 8:29 PM PROCEDURE INTERPRETED AT [facility] [place] DEPARTMENT OF RADIOLOGY Final Report Signed by: Dr. Venu Argueta
[2016-10-16 20:36] LABS: PT Patient Result 11.1 SECS; Partial Thromboplastin Time 24.9 SECS (0-40)
[2016-10-16 20:46] LABS: Bilirubin,Total 0.8 MG/DL (0.2-1.0); Calcium 9.9 MG/DL (8.5-10.1); Osmolality,Calculated 289.5 MOS/KG (273-304); Potassium 3.6 MMOL/L (3.5-5.1); Total Protein 7.8 G/DL (6.4-8.3)
[2016-10-16 20:50] LABS: Apearance,Urine Slightly Hazy (Clear); Bilirubin,Urine Negative (Negative); Blood, Urine Negative (Negative); Glucose,Urine (UA) Negative (Negative); Ketones,Urine 80 mg/dL (Negative); Nitrite,Urine Negative (Negative); Protein,Urine 30 MG/DL; RBC,Urine <1 /HPF (0-4); Squamous Epithelial Cell,Urine Occasional /HPF (0-10); Urine Color Yellow (Yellow); Urine Specific Gravity 1.025 (1.001-1.035); Urine Urobilinogen < 2.0 EU/DL (0.2-1.0); WBC,Urine 1 /HPF (0-6)
[2016-10-16 21:10] LABS: Troponin I Only < 0.015 NG/ML (0.00-0.045)
[2016-10-16] MEDS ORDERED: DILTIAZEM 50 MG/10 ML VIAL IV STA (21:24)
--- NOTE | 2016-10-16 21:32 | Emergency Department Note ---
David Toscano Brittany, am scribing for, and in the presence of, Devon Vanessa MD 20 :13. Rasheeda Toscano Hans, MD, personally performed the services described in this documentation, ascribed by Анна Hernandez in my presence, and it is both accurate and complete . Arrival - Arrival Chief Complaint: Altered Mental Status Stated Complaint: SOB ED Nursing Triage Note: pt presented to triage via w/c with c/o confusion x 2 days. pt crying at times. pt states she thinks her meds are messed up. pt A+O x 3 in triage. states "pt's heart was racing yesterday and kept her up all night". pt denies cp and sob at this time. pt is scheduled for surgury monday on L shoulder Mode of Arrival: Wheelchair Limitations: No Limitations Source: Patient, Significant other (), RN Notes Reviewed - History of Present Illness HPI Narrative: Patient is a 65 y/o white female presenting to the ED for further evaluation of intermittent episodes of AMS. Patient in room is AAOx3 and is able to follow commands well. She reports that she is here today to get a better understanding as to why she's had intermittent episodes of confusion for the past two days. Patient states that she did have some palpitations, slight WOODS, and abdominal pain, but denies any chest pain or SOB. Patient notes having some dark diarrhea type stools, but contributes the coloration to iron supplement therapy. Patient states that she is scheduled to have a left shoulder surgery per Dr. Almonte on Monday. She has no other complaint/pain. Onset (ago): day(s) (2) Consistency: intermittent Allergies/Adverse Reactions: Allergies Allergy/AdvReac Type Severity Reaction Status Date / Time STEROIDS AdvReac Confusion Uncoded 06/27/16 14:23 Home Medications: Home Medications Medication Instructions Recorded Confirmed Type Imipramine [Tofranil] 200 mg PO BEDTIME 09/11/14 10/16/16 History LORazepam [Lorazepam] 1 mg PO BEDTIME PRN 09/11/14 10/16/16 History Pravastatin [Pravachol] 20 mg PO BEDTIME 09/11/14 10/16/16 History rOPINIRole [Requip] 3 mg PO BEDTIME 09/11/14 10/16/16 History Levothyroxine Tab [Synthroid Tab] 88 mcg PO QAM 06/27/16 10/16/16 History Magnesium Chloride [Magnesium Dr] 64 mg PO BID 06/27/16 10/16/16 History Nebivolol [Bystolic] 10 mg PO QAM 06/27/16 10/16/16 History Sotalol HCl [Sotalol] 160 mg PO BID 06/27/16 10/16/16 History Apixaban [Eliquis] 5 mg PO BID 10/04/16 10/16/16 History Acetaminophen Tab [Tylenol Tab] 1,000 mg PO Q6H PRN 10/16/16 10/16/16 History Ferrous Sulfate 325 mg PO BID 10/16/16 10/16/16 History Omeprazole 40 mg PO BEDTIME 10/16/16 10/16/16 History Review of System - Review of System 12 point system: reviewed and no additional remarkable complaints except as stated - Review of System Constitutional: Absent: chills, fever Eyes: Absent: vision change Head/Ears/Nose/Throat: Absent: nasal drainage, sore throat Respiratory: Absent: cough, respiratory distress Cardiovascular: Present: palpitations. Absent: chest pain Gastrointestinal: Present: abdominal pain, diarrhea, other (dark stools). Absent: nausea, vomiting Genitourinary female: Absent: dysuria, frequency, urgency Musculoskeletal: Absent: arm pain, back pain, leg pain, neck pain Skin: Absent: rash Neurological: Present: headache (slight), confusion Psychiatric: Absent: anxiety, depression Medical,Surgical,& Family Hx - Medical History Cardio: History of: Cardiac Dysrhythmia (A FIB), Hypertension, Cardiovascular Problems (DR PELLETIER. LAST VISIT 04/2016.) Psychological: History of: Depression Neurology: No history of: Seizures HEENT: Comment Only: Eye Problem (GLASSES) Endocrine: History of: Dyslipidemia, Thyroid Disorder Rheumatology: History of;: Rheumatological Problems Respiratory: No history of: Respiratory Problems (FLU VAC- YES; PNEU VAC- YES.) Genitourinary: History of: Bladder Problem (INCONTIENCE. REUBEN BIRD), Kidney Stones Gastrointestinal: History of: Gastrointestinal Bleed, Hemorrhoids, GI Problems ( HIATAL HERNIA) Musculoskeletal: History of: Herniated Disk, Osteoporosis, Musculoskeletal Problems (SPINAL STENOSIS, BULGING DISKS) Hematology: History of: Bleeding Problems (Rectal bleeding PAST 07/2016.) Reproductive: History of: Ovarian Cysts - Surgical History HEENT Surgeries: Surgical HX of: Eye Surgery (BILATERAL CATARACT), Tonsilectomy & Adenoidectomy Abdominal Surgeries: Surgical HX of: Abdominal Surgery, Appendectomy, Cholecystectomy, Colonoscopy, EGD Reproductive Surgeries: Surgical HX of;: Breast Surgery (RIGHT LUMPECTOMY), Genitourinary Surgery (BLADDER SLING), Gynecologic Surgery, Hysterectomy Orthopedic Surgeries: Surgical HX of;: Total Knee Replacement (RIGHT KNEE, LEFT KNEE 2013) - Family History Family History: Reports;: Family Cancer (BROTHER), Family Diabetes (SON), Family Heart Disease (FATHER) - Social History Smoking Status: Never smoker Frequency of Alcohol Use: None Type of Drug Use: None Exam Vital Signs: Vital Signs Temperature 97.6 F 10/16/16 20:15 Pulse Rate 115 H 10/16/16 20:15 Respiratory Rate 18 10/16/16 20:15 Blood Pressure 107/74 10/16/16 20:15 O2 Sat by Pulse Oximetry 98 10/16/16 19:40 - General General appearance: alert, in no apparent distress - Head Head exam: Present: atraumatic, normocephalic, normal inspection - Eye Eye exam: Present: normal appearance, PERRL, EOMI - ENT ENT exam: Present: normal exam, normal oropharynx - Neck Neck exam: Present: normal inspection, full ROM, trachea midline - Chest Chest inspection: Present: normal inspection, symmetric chest wall rise - Respiratory Respiratory exam: Present: normal lung sounds bilaterally - Cardiovascular Cardiovascular exam: Present: normal rhythm, normal heart sounds. Absent: regular rate (irregular), murmur - Abdominal Exam Abdominal exam: Present: soft, normal bowel sounds. Absent: tenderness - Extremities Exam Extremities exam: Present: normal inspection - Back Exam Back exam: Present: normal inspection - Neurological Exam Neurological exam: Present: alert, oriented X3, CN II-XII intact. Absent: motor sensory deficit - Psychiatric Psychiatric exam: Present: normal affect, normal mood - Skin Skin exam: Present: warm, dry Course Course Narrative: This patient was evaluated in the ER and her workup was negative other than some mild elevation in creatinine and atrial fibrillation with RVR. She was placed on a Cardizem drip and the hospitalist was contacted for admission. Results - Labs CBC & BMP: 10/16/16 19:56 10/16/16 19:56 Lab Results: I have reviewed the patients labs Labs: Laboratory Tests 10/16/16 10/16/16 10/16/16 19:56 19:56 19:56 WBC 9.3 RBC 5.09 Hgb 15.6 Hct 45.0 Plt Count 288 Neut % (Auto) 81.1 H Lymph % (Auto) 13.3 L Neut # (Auto) 7.5 H Lymph # (Auto) 1.2 L INR PT Patient/Control Mix Circ Anticoag PTT Sodium 139 Potassium 3.6 Chloride 105 Carbon Dioxide 23 BUN 39 H Creatinine 1.30 H BUN/Creatinine Ratio 30.00 H Glucose 166 H Globulin 3.8 H Albumin/Globulin Ratio 1.0 L Urine Color Yellow Urine Appearance Slightly hazy Urine pH 5.0 Ur Specific [place] 1.025 Urine Protein 30 Urine Glucose (UA) Negative Urine Ketones 80 Urine Blood Negative Urine Nitrate Negative Urine Bilirubin Negative Urine Urobilinogen < 2.0 H Urine Leukocytes Negative Urine RBC <1 Urine WBC 1 Ur Squamous Epith Cells Occasional 10/16/16 19:56 WBC RBC Hgb Hct Plt Count Neut % (Auto) Lymph % (Auto) Neut # (Auto) Lymph # (Auto) INR 1.0 PT Patient/Control Mix 11.1 Circ Anticoag PTT 24.9 Sodium Potassium Chloride Carbon Dioxide BUN Creatinine BUN/Creatinine Ratio Glucose Globulin Albumin/Globulin Ratio Urine Color Urine Appearance Urine pH Ur Specific [place] Urine Protein Urine Glucose (UA) Urine Ketones Urine Blood Urine Nitrate Urine Bilirubin Urine Urobilinogen Urine Leukocytes Urine RBC Urine WBC Ur Squamous Epith Cells Laboratory Tests 10/16/16 19:56 B-Natriuretic Peptide 219 H Laboratory Tests 10/16/16 19:56 Total Creatine Kinase 166 CK-MB (CK-2) 2.2 Troponin I < 0.015 - Diagnostic Findings Procedure: Chest x-ray: report reviewed by me (No active cardiopulmonary disease.), CT: report reviewed by me (CT Head: No CT evidence of acute intracranial pathology. ) Disposition Clinical Impression: Atrial fibrillation with rapid ventricular response Case discussed with: patient, patient's family Disposition: Still a Patient Condition: Stable Time of Disposition: 21:32
[2016-10-16] MEDS ORDERED: DILTIAZEM 50 MG/10 ML VIAL IV ONE (22:10)
[2016-10-16] MEDS ORDERED: DILTIAZEM 100 MG VIAL.ADD IV ONE (22:10)
[2016-10-16] MEDS ORDERED: SODIUM CHLORIDE 0.9% 100 ML IV ONE (22:11)
[2016-10-16] MEDS: DILTIAZEM INJ 100 MG in SODIUM CHLORIDE 0.9% 100 ML IV SCH (22:29)
[2016-10-16] MEDS ORDERED: ACETAMINOPHEN 325 MG TABLET PO PRN (22:38)
[2016-10-16] MEDS ORDERED: LORazepam 1 MG TABLET PO PRN (22:40)
--- NOTE | 2016-10-16 22:47 | Hospitalist History & Physical ---
Assessment and Plan (1) History of atrial fibrillation Status: Acute Current Visit: No (2) Hypothyroid Status: Chronic Current Visit: No (3) Hypertension Status: Chronic Current Visit: No (4) Atrial fibrillation with rapid ventricular response Status: Acute Assessment and plan: My plan for this patient will be admitting her to telemetry. We will put her on a Cardizem infusion. Continue home meds as appropriate. Patient reports that she thinks her home meds are messed up. We will continue them as they are prescribed. Consult cardiology. Dr. Russo is her regular fun house attendant for her A. fib. Current Visit: Yes History of Present Illness Chief complaint: Not feeling well History of present illness: Ms. Booth is a 65 year old female with past medical history significant for atrial fibrillation presents to our hospital complaining of not feeling well. Patient is very emotional she says that she has a lot going on with her. She has been very tearful. Her motions kicked in yesterday approximately 12 PM. She has been feeling like a tight sensation in her chest and that her heart is been rising ever since then. Patient was found to be in A. fib with RVR was consulted to admit. She normally sees Dr. Russo. Home Medications Medication Instructions Recorded Confirmed Type Imipramine [Tofranil] 200 mg PO BEDTIME 09/11/14 10/16/16 History LORazepam [Lorazepam] 1 mg PO BEDTIME PRN 09/11/14 10/16/16 History Pravastatin [Pravachol] 20 mg PO BEDTIME 09/11/14 10/16/16 History rOPINIRole [Requip] 3 mg PO BEDTIME 09/11/14 10/16/16 History Levothyroxine Tab [Synthroid Tab] 88 mcg PO QAM 06/27/16 10/16/16 History Magnesium Chloride [Magnesium Dr] 64 mg PO BID 06/27/16 10/16/16 History Nebivolol [Bystolic] 10 mg PO QAM 06/27/16 10/16/16 History Sotalol HCl [Sotalol] 160 mg PO BID 06/27/16 10/16/16 History Apixaban [Eliquis] 5 mg PO BID 10/04/16 10/16/16 History Acetaminophen Tab [Tylenol Tab] 1,000 mg PO Q6H PRN 10/16/16 10/16/16 History Ferrous Sulfate 325 mg PO BID 10/16/16 10/16/16 History Omeprazole 40 mg PO BEDTIME 10/16/16 10/16/16 History Allergies Allergy/AdvReac Type Severity Reaction Status Date / Time STEROIDS AdvReac Confusion Uncoded 06/27/16 14:23 Medical,Surgical,& Family Hx - Medical History Cardio: History of: Cardiac Dysrhythmia (A FIB), Hypertension, Cardiovascular Problems (DR RUSSO. LAST VISIT 04/2016.) Psychological: History of: Depression Neurology: No history of: Seizures HEENT: Comment Only: Eye Problem (GLASSES) Endocrine: History of: Dyslipidemia, Thyroid Disorder Rheumatology: History of;: Rheumatological Problems Respiratory: No history of: Respiratory Problems (FLU VAC- YES; PNEU VAC- YES.) Genitourinary: History of: Bladder Problem (INCONTIEDEDEE. REUBEN BIRD), Kidney Stones Gastrointestinal: History of: Gastrointestinal Bleed, Hemorrhoids, GI Problems ( HIATAL HERNIA) Musculoskeletal: History of: Herniated Disk, Osteoporosis, Musculoskeletal Problems (SPINAL STENOSIS, BULGING DISKS) Hematology: History of: Bleeding Problems (Rectal bleeding PAST 07/2016.) Reproductive: History of: Ovarian Cysts - Surgical History HEENT Surgeries: Surgical HX of: Eye Surgery (BILATERAL CATARACT), Tonsilectomy & Adenoidectomy Abdominal Surgeries: Surgical HX of: Abdominal Surgery, Appendectomy, Cholecystectomy, Colonoscopy, EGD Reproductive Surgeries: Surgical HX of;: Breast Surgery (RIGHT LUMPECTOMY), Genitourinary Surgery (BLADDER SLING), Gynecologic Surgery, Hysterectomy Orthopedic Surgeries: Surgical HX of;: Total Knee Replacement (RIGHT KNEE, LEFT KNEE 2013) - Family History Family History: Reports;: Family Cancer (BROTHER), Family Diabetes (SON), Family Heart Disease (FATHER) - Social History Smoking Status: Never smoker Frequency of Alcohol Use: None Type of Drug Use: None 12 point system: reviewed and no additional remarkable complaints except as stated Exam - Constitutional Vitals: Period Temp Pulse Resp BP Sys/[place]acon Pulse Ox Last 24 Hr 97.6 F-97.6 F 107-115 18-18 100-107/74-74 98 General appearance: over weight - Head Head exam: Present: normal inspection - Eye Eye exam: Present: EOMI Pupils: Present: ROXY - ENT ENT exam: Present: normal exam - Neck Neck exam: Present: normal inspection - Respiratory Respiratory exam: Present: clear to auscultation bilaterally - Cardiovascular Cardiovascular exam: Present: irregular rhythm, tachycardia - GI/Abdominal GI/Abdominal exam: Present: normal bowel sounds - Extremities Exam Extremities exam: Present: normal inspection - Back Exam Back exam: Present: normal inspection - Neurological Exam Neurological exam: Present: alert - Psychiatric Psychiatric exam: Present: anxious, depressed - Skin Skin exam: Present: normal color Results - Labs CBC & BMP: 10/16/16 19:56 10/16/16 19:56
[2016-10-17] MEDS: rOPINIRole 1 MG TABLET PO SCH ×2 (01:29→21:09)
[2016-10-17] MEDS: APIXABAN 5 MG TABLET PO SCH ×3 (01:30→21:08)
[2016-10-17] MEDS: PRAVASTATIN 20 MG TABLET PO SCH ×2 (01:30→21:09)
[2016-10-17 05:09] LABS: Basophils % 0.2 % (0.0-0.8); Eosinophils % 0.6 % (0.00-10.9); Hematocrit 42.4 VOL% (35.7-47.0); Hemoglobin 14.6 GM/DL (12.0-16.0); Immature Granulocytes % 0.2 %; Immature Granulocytes Absolute 0.01 #; Lymphocytes # 2.2 10*3/uL (1.4-4.0); Lymphocytes % 33.7 % (21.3-54.2); Mean Corpuscular HGB Conc 34.4 GM/DL (32-36); Mean Corpuscular Hemoglobin 31 PG (27-34); Mean Corpuscular Volume 89.1 FL (87-102); Mean Platelet Volume 10.1 FL (9.6-12.0); Monocytes # 0.7 10*3/uL (0.11-0.8); Monocytes % 10.8 % (1.7-12.7); Neutrophils # 3.6 10*3/uL (1.4-7.4); Neutrophils % 54.5 % (38.7-73.9); Platelet Count 263 T/CUMM (130-400); Red Blood Count 4.76 MC/CUMM (3.8-5.5); Red Cell Distribution Width 11.9 % (9.3-17.3); White Blood Count 6.6 T/CUMM (4-12)
[2016-10-17 05:45] LABS: Troponin I Only < 0.015 NG/ML (0.00-0.045)
[2016-10-17 05:55] LABS: Albumin 3.7 G/DL (3.4-5.0); Bilirubin,Total 1.2 MG/DL (0.2-1.0); Calcium 9.9 MG/DL (8.5-10.1); Potassium 3.6 MMOL/L (3.5-5.1); Risk Ratio 2.8; Total Protein 7.1 G/DL (6.4-8.3); VLDL CHOLESTEROL 19.2 MG/DL
--- NOTE | 2016-10-17 06:02 | EKG Report ---
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
[2016-10-17] MEDS: NEBIVOLOL 10 MG TABLET PO SCH (08:47)
[2016-10-17] MEDS: LEVOTHYROXINE 88 MCG TABLET PO SCH (08:47)
[2016-10-17] MEDS: MAGNESIUM CHLORIDE 64 MG TABLET PO SCH ×2 (08:47→21:08)
[2016-10-17] MEDS: SOTALOL 80 MG TABLET PO SCH ×2 (08:47→21:08)
[2016-10-17] MEDS: PANTOPRAZOLE 40 MG TABLET PO SCH (08:47)
[2016-10-17] MEDS: FERROUS SULFATE 325 MG TABLET PO SCH ×2 (08:47→21:08)
--- NOTE | 2016-10-17 10:57 | Cardiology Consult Note ---
<Abeba Rivera E - Last Filed: 10/17/16 10:39> Assessment and Plan - Time spent with patient Time spent with patient: Less than 30 minutes (1) Atrial fibrillation with rapid ventricular response Status: Acute Assessment and plan: See plan of care listed below. Current Visit: Yes (2) History of atrial fibrillation Status: Chronic Assessment and plan: See plan of care listed below. Current Visit: No (3) Chronic anticoagulation Status: Chronic Assessment and plan: See plan of care listed below. Current Visit: Yes (4) Hypertension Status: Chronic Assessment and plan: See plan of care listed below. Current Visit: No (5) Dyslipidemia Status: Chronic Assessment and plan: See plan of care listed below. Current Visit: Yes (6) Depression Status: Chronic Current Visit: Yes (7) Bipolar disorder Status: Chronic Current Visit: Yes History of Present Illness - Data of Consult Patient: known to practice within the last 3 years Consult date: 10/16/16 Requesting Physician: Jona Woodard Primary care physician: Armando Barcenas - Consult Narrative Reason for consult: atrial fibrillation with rapid ventricular response History of present illness: Major Account Manager: Dr. Russo PCP: Dr. Barcenas Ms. Booth is a 65 year old female with a history of paroxysmal atrial fibrillation, on chronic anticoagulation with Eliquis, depression, bipolar disorder, psychocis, and family history of ischemic heart disease. Risk factors are significant for: hypertension, dyslipidemia, obesity, age. She is a lifetime nonsmoker. She has a history of GI bleed with prior NSAID use. She was scheduled for shoulder surgery on 10/19/[address] Reyna due to left shoulder pain. 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 She had a normal exercise cardiac stress test February 08, 2016. Ms. Booth presented to the emergency room with complaints of not feeling well. She was found to be in Afib w/ RVR and we were consulted to see her and aid in her management. Her , Tiago, is at the bedside upon exam today. She tells me that she has been under a great deal of emotional stress during the past few weeks and also went without sleep for 24 hours prior to her symptoms beginning. She has an older brother and a son who both have cancer and also tells me that there have been numerous familial disagreements over inheritances recently. She admits being confused about her medications recently with an approaching surgical procedure. She states that 2 days ago, she felt her heart racing and experienced chest tightness with associated headache. Her is a pharmacist and reports he is going to begin administering her medications to lessen the risk for medication errors. Upon arrival, she was noted to have heart rates in the 110s and was placed on IV cardizem infusion. Her sotalol and Eliquis were resumed. She remains in atrial fibrillation this morning, but now with controlled ventricular response. H&H is currently stable at 14.6 & 42.4. Creatinine is 0.9, potassium 3.6. She has had 2 sets of negative cardiac biomarkers. ASSESSMENT/PLAN: 1. PAROXYSMAL ATRIAL FIBRILLATION WITH RVR - Continue IV Cardizem and PO Sotalol. Will start Ascorbic acid BID. 2. CHRONIC ANTICOAGULATION - She is on Eliquis. She had shoulder surgery planned for 10/19/16 but has now had an episode of AFRVR. 3. HYPERTENSION - Currently well controlled with occasional hypotensive reading. Will continue to monitor and adjust accordingly. 4. DYSLIPIDEMIA - Continue lipid lowering agent. Lipid panel this morning revealed triglycerides 96, cholesterol 179, LDL 93, and HDL 64. 5. DEPRESSION 6. BIPOLAR DISORDER CC: Steven Velazquez MD - Home Medications and Allergies Home Medications: Home Medications Medication Instructions Recorded Confirmed Type Imipramine [Tofranil] 200 mg PO BEDTIME 09/11/14 10/16/16 History LORazepam [Lorazepam] 1 mg PO BEDTIME PRN 09/11/14 10/16/16 History Pravastatin [Pravachol] 20 mg PO BEDTIME 09/11/14 10/16/16 History rOPINIRole [Requip] 3 mg PO BEDTIME 09/11/14 10/16/16 History Levothyroxine Tab [Synthroid Tab] 88 mcg PO QAM 06/27/16 10/16/16 History Magnesium Chloride [Magnesium Dr] 64 mg PO BID 06/27/16 10/16/16 History Nebivolol [Bystolic] 10 mg PO QAM 06/27/16 10/16/16 History Sotalol HCl [Sotalol] 160 mg PO BID 06/27/16 10/16/16 History Apixaban [Eliquis] 5 mg PO BID 10/04/16 10/16/16 History Acetaminophen Tab [Tylenol Tab] 1,000 mg PO Q6H PRN 10/16/16 10/16/16 History Ferrous Sulfate 325 mg PO BID 10/16/16 10/16/16 History Omeprazole 40 mg PO BEDTIME 10/16/16 10/16/16 History Allergies/Adverse Reactions: Allergies Allergy/AdvReac Type Severity Reaction Status Date / Time STEROIDS AdvReac Confusion Uncoded 06/27/16 14:23 Review of systems: - Constitutional: Present: fatigue, headache(s), As per HPI. Absent: anorexia, chills, daytime sleepiness, excessive sweating, fever(s), frequent falls, increased appetite, lethargy, malaise, night sweats, stops breathing during sleep, weakness, weight gain, weight loss. - EENT Eyes: Present: As per HPI. Absent: blurry vision, diplopia, loss of vision Ears: Present: As per HPI. Absent: decreased hearing, ear discharge, ear pain Nose, mouth and throat: Present: As per HPI. Absent: dysphagia, epistaxis, headache(s), hoarseness, lip swelling, nasal congestion, neck mass, neck pain, sinus pressure, sore throat, throat swelling, tongue swelling, vertigo - Cardiovascular: Present: chest pain at rest, palpitations, as per HPI. Absent : chest pain with activity, dyspnea, dyspnea on exertion, edema, claudication, diaphoresis, radiating jaw, neck or arm pain, lightheadedness, orthopnea, PND - Respiratory: Present: as per HPI. Absent: dyspnea, dyspnea on exertion, cough , hemoptysis, wheezing, snoring, pain on inspiration - Gastrointestinal: Present: As per HPI. Absent: abdominal pain, bloating, change in bowel habits, constipation, diarrhea, heartburn, hematemesis, hematochezia, loose stools, melena, nausea, vomiting - Genitourinary: Present: As per HPI. Absent: difficulty urinating, dysuria, flank pain, hematuria, nocturia, urinary frequency, urinary incontinence - Musculoskeletal: Present: As per HPI. Absent: arthralgias, back pain, joint swelling, limited range of motion, muscle cramps, muscle weakness, myalgias - Neurological: Present: confusion, As per HPI. Absent: abnormal gait, abnormal speech, behavioral changes, convulsions, disequilibrium, dizziness, focal weakness, frequent falls, headache(s), memory loss, numbness, paresthesias, radicular pain, syncope, tremor(s) - Psychiatric: Present: anxiety, confusion, depression, As per HPI. Absent: panic attacks - Endocrine: Present: fatigue, As per HPI. Absent: cold intolerance, heat intolerance, polydipsia, polyphagia - Hematologic/Lymphatic: Present: easy bleeding, easy bruising, As per HPI. Absent: lymphadenopathy Medical,Surgical,& Family Hx - Medical History Cardio: History of: Cardiac Dysrhythmia (A FIB), Hypertension, Cardiovascular Problems (DR RUSSO. LAST VISIT 04/2016.) No history of: Aneurysm, Cerebrovascular Disease, Congenital Heart Disease, CHF, CAD, GA, Pacemaker, PVD, Valvular Heart Disease Psychological: History of: Depression Neurology: No history of: Brain Aneurysm, Cerebral Hemorrhage, Cerebrovascular Accident , Cerebral Palsy, Dementia, Migraine, Multiple Sclerosis, Parkinson's Disease, Peripheral Neuropathy, Seizures, TIA, Vertigo, Neurologocal Cancer HEENT: Comment Only: Eye Problem (GLASSES) Endocrine: History of: Dyslipidemia, Thyroid Disorder Rheumatology: History of;: Rheumatological Problems Respiratory: No history of: Asthma, Bronchitis, COPD, Intubation, Obstructive Sleep Apnea , Pulmonary Embolism, Pulmonary Hypertension, Pneumonia, Lung Cancer, Respiratory Problems (FLU VAC- YES; PNEU VAC- YES.) Genitourinary: History of: Bladder Problem (INCONTIENCE. REUBEN BIRD), Kidney Stones Gastrointestinal: History of: Gastrointestinal Bleed, Hemorrhoids, GI Problems ( HIATAL HERNIA) No history of: Bowel Obstruction, Clostridium Difficile, Crohn's Disease, Diverticulitis/ Diverticulosis, Esophageal Varices, GERD, Hematochezia, Gastrointestinal Cancer Musculoskeletal: History of: Herniated Disk, Osteoporosis, Musculoskeletal Problems (SPINAL STENOSIS, BULGING DISKS) Hematology: History of: Bleeding Problems (Rectal bleeding PAST 07/2016.) Reproductive: History of: Ovarian Cysts - Surgical History Cardiac Surgeries: Patient Denies: Femoral-Popliteal Bypass Graft, Cardiac Catheterization, Cardiac Surgery, Carotid Endarterectomy, Internal Defibrillator, Vascular Access Devices Thoracic Surgeries: Patient denies;: Organ Transplant, Lobectomy Neurologic Surgeries: Patient denies: Brain Aneurysm, Cerebral Hemorrhage, Neurologic Surgery HEENT Surgeries: Surgical HX of: Eye Surgery (BILATERAL CATARACT), Tonsilectomy & Adenoidectomy Patient denies: Carotid Endarterectomy Abdominal Surgeries: Surgical HX of: Abdominal Surgery, Appendectomy, Cholecystectomy, Colonoscopy, EGD Patient denies: Splenectomy Reproductive Surgeries: Surgical HX of;: Breast Surgery (RIGHT LUMPECTOMY), Genitourinary Surgery (BLADDER SLING), Gynecologic Surgery, Hysterectomy Orthopedic Surgeries: Surgical HX of;: Total Knee Replacement (RIGHT KNEE, LEFT KNEE 2014) - Family History Family History: Reports;: Family Cancer (BROTHER), Family Diabetes (SON), Family Heart Disease (FATHER) - Social History Smoking Status: Never smoker Frequency of Alcohol Use: None Type of Drug Use: None Marital Status: Lives With:: Spouse Functional capacity: independent ambulation Physical Examination Vital Signs Temp Pulse Resp BP Pulse Ox 97.6 F 107 H 18 100/74 98 10/16/16 19:40 10/16/16 19:40 10/16/16 19:40 10/16/16 19:40 10/16/16 19:40 Exam: General appearance: Pleasant and cooperative. Overweight, no acute distress. - Head Head exam: Present: normal inspection, normocephalic, atraumatic. Absent: hematoma, laceration - Eye Eye exam: Present: EOMI. Absent: conjunctival injection, nystagmus, periorbital swelling, scleral icterus, laceration to eyelids Pupils: Present: PERRL. Absent: constricted, dilated, fixed, irregular, unequal - ENT ENT exam: Present: normal exam, normal external ear exam - Neck Neck exam: Present: normal inspection. Absent: lymphadenopathy, meningismus, tenderness, thyromegaly, carotid bruit - Respiratory Respiratory exam: Present: clear to auscultation bilaterally. Absent: accessory muscle use, chest wall tenderness, rales, rhonchi, wheezing. - Cardiovascular Cardiovascular exam: Present: Irregular rate and rhythm. Absent: gallop, rubs, murmur - GI/Abdominal GI/Abdominal exam: Present: normal bowel sounds, soft. Absent: distended, firm , guarding, hernia, mass, tenderness, rebound. - Extremities Exam Extremities exam: Present: normal inspection, normal capillary refill. Upper extremity pulses 2+. Lower extremity pulses 2+. Absent: calf tenderness, edema -Musculoskeletal Exam Musculoskeletal: Present: No Fluid Collection, No Pain, Normal Range of Motion - Back Exam Back exam: Present: normal inspection. Absent: muscle spasm, vertebral tenderness - Neurological Exam Neurological exam: Present: alert, oriented X3, grossly intact without resting or essential tremor - Psychiatric Psychiatric exam: Present: normal affect, normal mood - Skin Skin exam: Present: normal color, warm, dry, intact. Absent: cyanosis, diaphoretic, rash, urticaria Result/EKG - Labs CBC & BMP: 10/17/16 04:17 10/17/16 04:17 Lab Results: I have reviewed the past 24 hour labs Labs: Laboratory Results - last 24 hr 10/16/16 10/16/16 10/16/16 19:56 19:56 19:56 WBC 9.3 RBC 5.09 Hgb 15.6 Hct 45.0 MCV 88.4 MCH 31 MCHC 34.7 RDW 11.9 Plt Count 288 MPV 9.9 Neut % (Auto) 81.1 H Lymph % (Auto) 13.3 L [place] % (Auto) 5.2 Eos % (Auto) 0.0 Baso % (Auto) 0.1 Neut # (Auto) 7.5 H Lymph # (Auto) 1.2 L [place] # (Auto) 0.5 Eos # (Auto) 0.0 Baso # (Auto) 0.0 Immature Gran % 0.3 Nucleated RBC % 0.0 Immature Gran # 0.03 Nucleated RBCs # 0.00 Immature Plt Fraction 0.0 INR PT Patient/Control Mix Circ Anticoag PTT Sodium 139 Potassium 3.6 Chloride 105 Carbon Dioxide 23 Anion Gap 14.6 BUN 39 H Creatinine 1.30 H GFR Calculation 50 BUN/Creatinine Ratio 30.00 H Glucose 166 H Calculated Osmolality 289.5 Calcium 9.9 Total Bilirubin 0.80 AST 25 ALT 26 Alkaline Phosphatase 107 Total Creatine Kinase CK-MB (CK-2) Troponin I B-Natriuretic Peptide Total Protein 7.8 Albumin 4.0 Globulin 3.8 H Albumin/Globulin Ratio 1.0 L Triglycerides Cholesterol LDL Cholesterol VLDL Cholesterol HDL Cholesterol Heart Disease Risk Ratio Urine Color Yellow Urine Appearance Slightly hazy Urine pH 5.0 Ur Specific [place] 1.025 Urine Protein 30 Urine Glucose (UA) Negative Urine Ketones 80 Urine Blood Negative Urine Nitrate Negative Urine Bilirubin Negative Urine Urobilinogen < 2.0 H Urine Leukocytes Negative Urine RBC <1 Urine WBC 1 Ur Squamous Epith Cells Occasional Ur Culture Indicated? Not indicated 10/16/16 10/16/16 10/16/16 19:56 19:56 19:56 WBC RBC Hgb Hct MCV MCH MCHC RDW Plt Count MPV Neut % (Auto) Lymph % (Auto) [place] % (Auto) Eos % (Auto) Baso % (Auto) Neut # (Auto) Lymph # (Auto) [place] # (Auto) Eos # (Auto) Baso # (Auto) Immature Gran % Nucleated RBC % Immature Gran # Nucleated RBCs # Immature Plt Fraction INR 1.0 PT Patient/Control Mix 11.1 Circ Anticoag PTT 24.9 Sodium Potassium Chloride Carbon Dioxide Anion Gap BUN Creatinine GFR Calculation BUN/Creatinine Ratio Glucose Calculated Osmolality Calcium Total Bilirubin AST ALT Alkaline Phosphatase Total Creatine Kinase 166 CK-MB (CK-2) 2.2 Troponin I < 0.015 B-Natriuretic Peptide 219 H Total Protein Albumin Globulin Albumin/Globulin Ratio Triglycerides Cholesterol LDL Cholesterol VLDL Cholesterol HDL Cholesterol Heart Disease Risk Ratio Urine Color Urine Appearance Urine pH Ur Specific [place] Urine Protein Urine Glucose (UA) Urine Ketones Urine Blood Urine Nitrate Urine Bilirubin Urine Urobilinogen Urine Leukocytes Urine RBC Urine WBC Ur Squamous Epith Cells Ur Culture Indicated? 10/17/16 10/17/16 10/17/16 04:17 04:17 04:17 WBC 6.6 RBC 4.76 Hgb 14.6 Hct 42.4 MCV 89.1 MCH 31 MCHC 34.4 RDW 11.9 Plt Count 263 MPV 10.1 Neut % (Auto) 54.5 Lymph % (Auto) 33.7 [place] % (Auto) 10.8 Eos % (Auto) 0.6 Baso % (Auto) 0.2 Neut # (Auto) 3.6 Lymph # (Auto) 2.2 [place] # (Auto) 0.7 Eos # (Auto) 0.0 Baso # (Auto) 0.0 Immature Gran % 0.2 Nucleated RBC % 0.0 Immature Gran # 0.01 Nucleated RBCs # 0.00 Immature Plt Fraction 0.0 INR PT Patient/Control Mix Circ Anticoag PTT Sodium 143 Potassium 3.6 Chloride 106 Carbon Dioxide 26 Anion Gap 14.6 BUN 40 H Creatinine 0.90 GFR Calculation 78 BUN/Creatinine Ratio 44.00 H Glucose 112 H Calculated Osmolality 295.0 Calcium 9.9 Total Bilirubin 1.20 H AST 18 ALT 23 Alkaline Phosphatase 98 Total Creatine Kinase 117 D CK-MB (CK-2) 1.6 Troponin I < 0.015 B-Natriuretic Peptide Total Protein 7.1 Albumin 3.7 Globulin 3.4 Albumin/Globulin Ratio 1.0 L Triglycerides 96 Cholesterol 179 LDL Cholesterol 93.0 VLDL Cholesterol 19.2 HDL Cholesterol 64 H Heart Disease Risk Ratio 2.80 Urine Color Urine Appearance Urine pH Ur Specific [place] Urine Protein Urine Glucose (UA) Urine Ketones Urine Blood Urine Nitrate Urine Bilirubin Urine Urobilinogen Urine Leukocytes Urine RBC Urine WBC Ur Squamous Epith Cells Ur Culture Indicated? - EKG EKG results: interpreted by me EKG shows: atrial fibrillation (with controlled ventricular response) <Pari Short - Last Filed: 10/17/16 17:52> History of Present Illness - Consult Narrative History of present illness: I have personally interviewed and evaluated the patient, reviewed the chart and discussed medical decision-making with practitioner Miguel. I have read this note and agree with her documentation here in. The patient is a very tangential historian. She acknowledges that she stopped "some of her medications" in preparation for her shoulder surgery, but cannot really distinguish whether or not is included more than her Eliquis. She has also had social disarray with an ill and son. CC: Steven Velazquez MD Physical Examination Vital Signs Temp Pulse Resp BP Pulse Ox 97.6 F 107 H 18 100/74 98 10/16/16 19:40 10/16/16 19:40 10/16/16 19:40 10/16/16 19:40 10/16/16 19:40 Result/EKG - Labs CBC & BMP: 10/17/16 04:17 10/17/16 04:17 Labs: Laboratory Results - last 24 hr 10/16/16 10/16/16 10/16/16 19:56 19:56 19:56 WBC 9.3 RBC 5.09 Hgb 15.6 Hct 45.0 MCV 88.4 MCH 31 MCHC 34.7 RDW 11.9 Plt Count 288 MPV 9.9 Neut % (Auto) 81.1 H Lymph % (Auto) 13.3 L [place] % (Auto) 5.2 Eos % (Auto) 0.0 Baso % (Auto) 0.1 Neut # (Auto) 7.5 H Lymph # (Auto) 1.2 L [place] # (Auto) 0.5 Eos # (Auto) 0.0 Baso # (Auto) 0.0 Immature Gran % 0.3 Nucleated RBC % 0.0 Immature Gran # 0.03 Nucleated RBCs # 0.00 Immature Plt Fraction 0.0 INR PT Patient/Control Mix Circ Anticoag PTT Sodium 139 Potassium 3.6 Chloride 105 Carbon Dioxide 23 Anion Gap 14.6 BUN 39 H Creatinine 1.30 H GFR Calculation 50 BUN/Creatinine Ratio 30.00 H Glucose 166 H Calculated Osmolality 289.5 Calcium 9.9 Total Bilirubin 0.80 AST 25 ALT 26 Alkaline Phosphatase 107 Total Creatine Kinase CK-MB (CK-2) Troponin I B-Natriuretic Peptide Total Protein 7.8 Albumin 4.0 Globulin 3.8 H Albumin/Globulin Ratio 1.0 L Triglycerides Cholesterol LDL Cholesterol VLDL Cholesterol HDL Cholesterol Heart Disease Risk Ratio Urine Color Yellow Urine Appearance Slightly hazy Urine pH 5.0 Ur Specific [place] 1.025 Urine Protein 30 Urine Glucose (UA) Negative Urine Ketones 80 Urine Blood Negative Urine Nitrate Negative Urine Bilirubin Negative Urine Urobilinogen < 2.0 H Urine Leukocytes Negative Urine RBC <1 Urine WBC 1 Ur Squamous Epith Cells Occasional Ur Culture Indicated? Not indicated 10/16/16 10/16/16 10/16/16 19:56 19:56 19:56 WBC RBC Hgb Hct MCV MCH MCHC RDW Plt Count MPV Neut % (Auto) Lymph % (Auto) [place] % (Auto) Eos % (Auto) Baso % (Auto) Neut # (Auto) Lymph # (Auto) [place] # (Auto) Eos # (Auto) Baso # (Auto) Immature Gran % Nucleated RBC % Immature Gran # Nucleated RBCs # Immature Plt Fraction INR 1.0 PT Patient/Control Mix 11.1 Circ Anticoag PTT 24.9 Sodium Potassium Chloride Carbon Dioxide Anion Gap BUN Creatinine GFR Calculation BUN/Creatinine Ratio Glucose Calculated Osmolality Calcium Total Bilirubin AST ALT Alkaline Phosphatase Total Creatine Kinase 166 CK-MB (CK-2) 2.2 Troponin I < 0.015 B-Natriuretic Peptide 219 H Total Protein Albumin Globulin Albumin/Globulin Ratio Triglycerides Cholesterol LDL Cholesterol VLDL Cholesterol HDL Cholesterol Heart Disease Risk Ratio Urine Color Urine Appearance Urine pH Ur Specific [place] Urine Protein Urine Glucose (UA) Urine Ketones Urine Blood Urine Nitrate Urine Bilirubin Urine Urobilinogen Urine Leukocytes Urine RBC Urine WBC Ur Squamous Epith Cells Ur Culture Indicated? 10/17/16 10/17/16 10/17/16 04:17 04:17 04:17 WBC 6.6 RBC 4.76 Hgb 14.6 Hct 42.4 MCV 89.1 MCH 31 MCHC 34.4 RDW 11.9 Plt Count 263 MPV 10.1 Neut % (Auto) 54.5 Lymph % (Auto) 33.7 [place] % (Auto) 10.8 Eos % (Auto) 0.6 Baso % (Auto) 0.2 Neut # (Auto) 3.6 Lymph # (Auto) 2.2 [place] # (Auto) 0.7 Eos # (Auto) 0.0 Baso # (Auto) 0.0 Immature Gran % 0.2 Nucleated RBC % 0.0 Immature Gran # 0.01 Nucleated RBCs # 0.00 Immature Plt Fraction 0.0 INR PT Patient/Control Mix Circ Anticoag PTT Sodium 143 Potassium 3.6 Chloride 106 Carbon Dioxide 26 Anion Gap 14.6 BUN 40 H Creatinine 0.90 GFR Calculation 78 BUN/Creatinine Ratio 44.00 H Glucose 112 H Calculated Osmolality 295.0 Calcium 9.9 Total Bilirubin 1.20 H AST 18 ALT 23 Alkaline Phosphatase 98 Total Creatine Kinase 117 D CK-MB (CK-2) 1.6 Troponin I < 0.015 B-Natriuretic Peptide Total Protein 7.1 Albumin 3.7 Globulin 3.4 Albumin/Globulin Ratio 1.0 L Triglycerides 96 Cholesterol 179 LDL Cholesterol 93.0 VLDL Cholesterol 19.2 HDL Cholesterol 64 H Heart Disease Risk Ratio 2.80 Urine Color Urine Appearance Urine pH Ur Specific [place] Urine Protein Urine Glucose (UA) Urine Ketones Urine Blood Urine Nitrate Urine Bilirubin Urine Urobilinogen Urine Leukocytes Urine RBC Urine WBC Ur Squamous Epith Cells Ur Culture Indicated?
--- NOTE | 2016-10-17 13:47 | Hospitalist Progress Note ---
Assessment and Plan - Time spent with patient Time spent with patient: Greater than 30 minutes (1) Hypertension Status: Chronic Current Visit: No (2) Atrial fibrillation with rapid ventricular response Status: Acute Current Visit: Yes (3) Dyslipidemia Status: Chronic Current Visit: Yes (4) Depression Status: Chronic Assessment and plan: Continue IV Cardizem, cardiology following and will likely transition to oral rate control medications. Oral anticoagulation has been resumed by cardiology, continue. Blood pressure is stable, continue her home antihypertensives. Continue her home statins. Current Visit: Yes Hospitalist: Subjective Interval history: 65-year-old lady who is known to have chronic atrial fibrillation, she was admitted for atrial fibrillation with rapid ventricular response. She is currently on IV Cardizem infusion, heart rate is better. She states that she generally feels better than she did on admission. She has also been restarted on her oral anticoagulation. She had been scheduled for surgical procedure tomorrow, with her being on oral anticoagulation her procedure may have to hold until she is a bit more stable hemodynamically. I discussed with her at bedside. Exam - Constitutional Vitals: Period Temp Pulse Resp BP Sys/[place] Pulse Ox Last 24 Hr 97.2 F-98.2 F 86-131 18-20 98-130/60-87 92-98 Exam: - Head Head exam: Present: normal inspection - Eye Eye exam: Present: EOMI Pupils: Present: ROXY - ENT ENT exam: Present: normal exam - Neck Neck exam: Present: normal inspection - Respiratory Respiratory exam: Present: clear to auscultation bilaterally - Cardiovascular Cardiovascular exam: Present: irregular rhythm, tachycardia - GI/Abdominal GI/Abdominal exam: Present: normal bowel sounds - Extremities Exam Extremities exam: Present: normal inspection - Back Exam Back exam: Present: normal inspection - Neurological Exam Neurological exam: Present: alert - Psychiatric Psychiatric exam: Present: anxious, depressed - Skin Skin exam: Present: normal color Results - Labs CBC & BMP: 10/17/16 04:17 10/17/16 04:17 Lab Results: I have reviewed the past 24 hour labs
[2016-10-17] MEDS: ASCORBIC ACID 500 MG TABLET PO SCH (21:08)
[2016-10-17] MEDS: IMIPRAMINE 50 MG TABLET PO SCH (21:24)
[2016-10-18] MEDS: DILTIAZEM INJ 100 MG in SODIUM CHLORIDE 0.9% 100 ML IV SCH (03:24)
--- NOTE | 2016-10-18 07:57 | EKG Report ---
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
[2016-10-18] MEDS: NEBIVOLOL 10 MG TABLET PO SCH (09:14)
[2016-10-18] MEDS: LEVOTHYROXINE 88 MCG TABLET PO SCH (09:14)
[2016-10-18] MEDS: PANTOPRAZOLE 40 MG TABLET PO SCH (09:15)
[2016-10-18] MEDS: FERROUS SULFATE 325 MG TABLET PO SCH ×2 (09:15→20:42)
[2016-10-18] MEDS: MAGNESIUM CHLORIDE 64 MG TABLET PO SCH ×2 (09:16→20:43)
[2016-10-18] MEDS: SOTALOL 80 MG TABLET PO SCH (09:16)
[2016-10-18] MEDS: ASCORBIC ACID 500 MG TABLET PO SCH ×2 (09:16→20:43)
[2016-10-18] MEDS: APIXABAN 5 MG TABLET PO SCH ×2 (09:16→20:43)
--- NOTE | 2016-10-18 16:54 | Hospitalist Progress Note ---
Assessment and Plan (1) Hypothyroid Status: Chronic Current Visit: Yes Qualifiers: Hypothyroidism type: acquired Qualified Code(s): E03.9 - Hypothyroidism, unspecified (2) Hypertension Status: Chronic Current Visit: Yes Qualifiers: Hypertension type: essential hypertension Qualified Code(s): I10 - Essential (primary) hypertension (3) Atrial fibrillation with rapid ventricular response Status: Resolved Assessment and plan: Now rate controlled sinus on sotalol and by bystolic Current Visit: Yes (4) Chronic anticoagulation Status: Chronic Assessment and plan: On Eliquis Current Visit: Yes Hospitalist: Subjective Interval history: Patient seen and examined. No acute events overnight. Case discussed with nursing staff. Labs reviewed. Cardizem drip has been turned off. Patient is rate controlled on sotalol and bystolic Exam - Constitutional Vitals: Period Temp Pulse Resp BP Sys/Chacon Pulse Ox Last 24 Hr 97.0 F-97.7 F 48-92 16-18 103-128/49-80 94-98 Exam: Constitutional System: No distress. No tremulousness. Head: Normocephalic, atraumatic. Ears, Nose and Throat System: No pain or tenderness. No epistaxis or discharge Eyes System: Pupils equal, round, and reactive. Extraocular muscles intact. Neck: Supple, without adenopathy, No jugular venous distention. No thyromegaly, neck mass, or prior surgery apparent. Respiratory System: Chest clear to auscultation. Cardiovascular System: Heart with regular rate and rhythm. GI System: Abdomen soft, nontender. Normo active bowel sounds present. Musculoskeletal System: limbs with no pedal edema. Full distal pulses. Neurological System: No discernable sensory deficit. No aphasia Psychiatric System: Conversation is rational Results - Labs CBC & BMP: 10/17/16 04:17 10/17/16 04:17 Lab Results: I have reviewed the past 24 hour labs
--- NOTE | 2016-10-18 17:49 | Cardiology Progress Note ---
<Abeba Rivera E - Last Filed: 10/18/16 17:45> Assessment and Plan - Time spent with patient Time spent with patient: Less than 30 minutes (1) Atrial fibrillation with rapid ventricular response Status: Resolved Assessment and plan: See plan of care listed below. Current Visit: Yes (2) History of atrial fibrillation Status: Chronic Assessment and plan: See plan of care listed below. Current Visit: No (3) Chronic anticoagulation Status: Chronic Assessment and plan: See plan of care listed below. Current Visit: Yes (4) Hypertension Status: Chronic Assessment and plan: See plan of care listed below. Current Visit: Yes Qualifiers: Hypertension type: essential hypertension Qualified Code(s): I10 - Essential (primary) hypertension (5) Dyslipidemia Status: Chronic Assessment and plan: See plan of care listed below. Current Visit: Yes (6) Depression Status: Chronic Current Visit: Yes (7) Bipolar disorder Status: Chronic Current Visit: Yes Cardiology - PN: Subj Interval history: Retort Furnace Helper: Dr. Russo PCP: Dr. Barcenas SUMMARY:Ms. Booth is a 65 year old female with a history of paroxysmal atrial fibrillation, on chronic anticoagulation with Eliquis, depression, bipolar disorder, psychocis, and family history of ischemic heart disease. Risk factors are significant for: hypertension, dyslipidemia, obesity, age. She presented to the ER with complaints of not feeling well and was found to be in AFib RVR. We were consulted to see her. The patient is a very tangential historian. She acknowledges that she stopped "some of her medications" in preparation for her shoulder surgery, but cannot really distinguish whether or not is included more than her Eliquis. She has also had social disarray with an ill brother and son. OCTOBER 18, 2016 UPDATE: Her sotalol was resumed and she has converted back to normal sinus rhythm. IV Cardizem was stopped this afternoon. She has had some rates in the 40s this evening. We will hold her evening dose of Sotalol and decrease her dose to 80mg PO BID starting tomorrow morning. She has had no further complaints. Vital signs have been stable. ASSESSMENT/PLAN: 1. PAROXYSMAL ATRIAL FIBRILLATION WITH RVR - Continue IV Cardizem and PO Sotalol. Will start Ascorbic acid BID. 2. CHRONIC ANTICOAGULATION - She is on Eliquis. She had shoulder surgery planned for 10/19/16 but has now had an episode of AFRVR. 3. HYPERTENSION - Currently well controlled. Will continue to monitor and adjust accordingly. 4. DYSLIPIDEMIA - Continue lipid lowering agent. Lipid panel this morning revealed triglycerides 96, cholesterol 179, LDL 93, and HDL 64. 5. DEPRESSION 6. BIPOLAR DISORDER Exam (Progress Note) - Constitutional Vitals: Period Temp Pulse Resp BP Sys/Chacon Pulse Ox Last 24 Hr 97.0 F-97.7 F 48-92 16-18 103-128/49-80 94-98 Exam: General appearance: Pleasant and cooperative. Overweight, no acute distress. - Head Head exam: Present: normal inspection, normocephalic, atraumatic. Absent: hematoma, laceration - Eye Eye exam: Present: EOMI. Absent: conjunctival injection, nystagmus, periorbital swelling, scleral icterus, laceration to eyelids Pupils: Present: PERRL. Absent: constricted, dilated, fixed, irregular, unequal - ENT ENT exam: Present: normal exam, normal external ear exam - Neck Neck exam: Present: normal inspection. Absent: lymphadenopathy, meningismus, tenderness, thyromegaly, carotid bruit - Respiratory Respiratory exam: Present: clear to auscultation bilaterally. Absent: accessory muscle use, chest wall tenderness, rales, rhonchi, wheezing. - Cardiovascular Cardiovascular exam: Present: Irregular rate and rhythm. Absent: gallop, rubs, murmur - GI/Abdominal GI/Abdominal exam: Present: normal bowel sounds, soft. Absent: distended, firm , guarding, hernia, mass, tenderness, rebound. - Extremities Exam Extremities exam: Present: normal inspection, normal capillary refill. Upper extremity pulses 2+. Lower extremity pulses 2+. Absent: calf tenderness, edema -Musculoskeletal Exam Musculoskeletal: Present: No Fluid Collection, No Pain, Normal Range of Motion - Back Exam Back exam: Present: normal inspection. Absent: muscle spasm, vertebral tenderness - Neurological Exam Neurological exam: Present: alert, oriented X3, grossly intact without resting or essential tremor - Psychiatric Psychiatric exam: Present: normal affect, normal mood - Skin Skin exam: Present: normal color, warm, dry, intact. Absent: cyanosis, diaphoretic, rash, urticaria Result/EKG - Labs CBC & BMP: 10/17/16 04:17 07/31/17 04:17 Lab Results: I have reviewed the past 24 hour labs - EKG EKG results: interpreted by me, sinus rhythm <Pari Short - Last Filed: 10/18/16 18:16> Cardiology - PN: Subj Interval history: I have personally interviewed and evaluated the patient, reviewed the chart and discussed medical decision-making with practitioner Miguel. I have read this note and agree with her documentation here in. We are also going to hold her Bystolic and monitor her heart rate. Exam (Progress Note) - Constitutional Vitals: Period Temp Pulse Resp BP Sys/Chacon Pulse Ox Last 24 Hr 97.0 F-97.7 F 48-92 16-18 103-128/49-80 94-98 Result/EKG - Labs CBC & BMP: 10/17/16 04:17 10/17/16 04:17
[2016-10-18] MEDS: rOPINIRole 1 MG TABLET PO SCH (20:41)
[2016-10-18] MEDS: IMIPRAMINE 50 MG TABLET PO SCH (20:42)
[2016-10-18] MEDS: PRAVASTATIN 20 MG TABLET PO SCH (20:43)
[2016-10-19 05:13] LABS: Basophils % 0.2 % (0.0-0.8); Eosinophils # 0.1 10*3/uL (0.0-0.87); Hematocrit 36.1 VOL% (35.7-47.0); Hemoglobin 12.2 GM/DL (12.0-16.0); Immature Granulocytes % 0.4 %; Immature Granulocytes Absolute 0.02 #; Lymphocytes # 1.5 10*3/uL (1.4-4.0); Mean Corpuscular HGB Conc 33.8 GM/DL (32-36); Mean Corpuscular Hemoglobin 31 PG (27-34); Mean Corpuscular Volume 90.7 FL (87-102); Mean Platelet Volume 10.2 FL (9.6-12.0); Monocytes # 0.5 10*3/uL (0.11-0.8); Monocytes % 10.5 % (1.7-12.7); Neutrophils # 2.8 10*3/uL (1.4-7.4); Neutrophils % 57.9 % (38.7-73.9); Platelet Count 196 T/CUMM (130-400); Red Blood Count 3.98 MC/CUMM (3.8-5.5); Red Cell Distribution Width 11.8 % (9.3-17.3); White Blood Count 4.9 T/CUMM (4-12)
[2016-10-19 05:44] LABS: Osmolality,Calculated 281.4 MOS/KG (273-304); Potassium 3.9 MMOL/L (3.5-5.1)
--- NOTE | 2016-10-19 07:45 | EKG Report ---
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
[2016-10-19] MEDS: FERROUS SULFATE 325 MG TABLET PO SCH (08:07)
[2016-10-19] MEDS: ASCORBIC ACID 500 MG TABLET PO SCH (08:07)
[2016-10-19] MEDS: PANTOPRAZOLE 40 MG TABLET PO SCH (08:08)
[2016-10-19] MEDS: MAGNESIUM CHLORIDE 64 MG TABLET PO SCH (08:08)
[2016-10-19] MEDS: LEVOTHYROXINE 88 MCG TABLET PO SCH (08:08)
[2016-10-19] MEDS: APIXABAN 5 MG TABLET PO SCH (08:08)
[2016-10-19] MEDS ORDERED: SOTALOL 80 MG TABLET PO SCH (09:00)
--- NOTE | 2016-10-19 10:55 | Discharge Summary ---
Hospital Course - Hospital Course Hospital Course: Ms. Booth is a 65 year old female with a history of paroxysmal atrial fibrillation, on chronic anticoagulation with Eliquis, depression, bipolar disorder, psychocis, and family history of ischemic heart disease. Risk factors are significant for: hypertension, dyslipidemia, obesity, age. She presented to the ER with complaints of not feeling well and was found to be in AFib RVR. We were consulted to see her. The patient is a very tangential historian. She acknowledges that she stopped "some of her medications" in preparation for her shoulder surgery, but cannot really distinguish whether or not is included more than her Eliquis. She has also had social disarray with an ill brother and son. Her sotalol was resumed and she has converted back to normal sinus rhythm. IV Cardizem was stopped. She has had some rates in the 40s and her evening dose of Sotalol was decreased to 80mg PO BID. We will also reduce her dose of bystolic to 5mg instead of 10mg. ASSESSMENT/PLAN: 1. PAROXYSMAL ATRIAL FIBRILLATION WITH RVR - Continue bystolic and Sotalol. Will start Ascorbic acid BID. 2. CHRONIC ANTICOAGULATION - She is on Eliquis. She had shoulder surgery planned for 10/19/16 but has now had an episode of AFRVR. 3. HYPERTENSION - Currently well controlled. Will continue to monitor and adjust accordingly. 4. DYSLIPIDEMIA - Continue lipid lowering agent. Lipid panel this morning revealed triglycerides 96, cholesterol 179, LDL 93, and HDL 64. 5. DEPRESSION 6. BIPOLAR DISORDER Patient will follow up with her registered radiographer as an outpatient as well as her primary care physician. Ny Rx's were sent to the [facility] pharmacy electronically. Home medication was reviewed and reconciled. - Time spent with patient Time with patient DS: Greater than 30 minutes (Total discharge time for this patient, including [id number] time, clinical documentation, medication reconciliation, and discharge planning was 38 minutes.) Diagnosis - Discharge Diagnosis (1) Hypothyroid Status: Chronic (2) Hypertension Status: Chronic (3) Atrial fibrillation with rapid ventricular response Status: Resolved (4) Chronic anticoagulation Status: Chronic Specialty Discharge - Follow Up or Referrals Follow up with: John Russo MD [Physician] - 2 Weeks (Follow up with Dr. Russo in 2-3 weeks. ) Discharge Plan - Discharge Data Disposition: Disch To Home/Self Care Condition at Discharge: Stable Discharge Diet: advance to your usual diet Activity: resume usual activities as tolerated Hygiene: no restrictions Weight Bearing at Discharge: full weight bearing Driving: no restrictions Contact your physician if you experience:: fever over 101, Shortness of breath, Bleeding - Discharge Medications New Sotalol [Betapace] 80 mg PO BID #60 tablet LORazepam TAB [Ativan Tab] 1 mg PO BEDTIME PRN tablet PRN Reason: Anxiety Nebivolol [Bystolic] 5 mg PO DAILY #30 tablet Ascorbic Acid Tab [Vitamin C Tab] 1,000 mg PO BID tablet Continue rOPINIRole [Requip] 3 mg PO BEDTIME Imipramine [Tofranil] 200 mg PO BEDTIME Pravastatin [Pravachol] 20 mg PO BEDTIME Magnesium Chloride [Magnesium Dr] 64 mg PO BID Levothyroxine Tab [Synthroid Tab] 88 mcg PO QAM Ferrous Sulfate 325 mg PO BID Acetaminophen Tab [Tylenol Tab] 1,000 mg PO Q6H PRN PRN Reason: Fever, Headache, Mild Pain Apixaban [Eliquis] 5 mg PO BID Omeprazole 40 mg PO BEDTIME Discontinued LORazepam [Lorazepam] 1 mg PO BEDTIME PRN PRN Reason: Anxiety Nebivolol [Bystolic] 10 mg PO QAM Sotalol HCl [Sotalol] 160 mg PO BID - Follow Up or Referral Follow Up: John Russo MD [Physician] - 2 Weeks (Follow up with Dr. Russo in 2-3 weeks. ) - Forms/Instructions Exam - Constitutional Vitals: Period Temp Pulse Resp BP Sys/Chacon Pulse Ox Last 24 Hr 97.1 F-97.6 F 48-66 16-20 104-130/55-71 96-99 Discharge Results Labs on day of discharge: Labs from last 24 hours 10/19/16 10/19/16 04:31 04:31 WBC 4.9 RBC 3.98 Hgb 12.2 D Hct 36.1 MCV 90.7 MCH 31 MCHC 33.8 RDW 11.8 Plt Count 196 D MPV 10.2 Neut % (Auto) 57.9 Lymph % (Auto) 30.0 [place] % (Auto) 10.5 Eos % (Auto) 1.0 Baso % (Auto) 0.2 Neut # (Auto) 2.8 Lymph # (Auto) 1.5 [place] # (Auto) 0.5 Eos # (Auto) 0.1 Baso # (Auto) 0.0 Immature Gran % 0.4 Nucleated RBC % 0.0 Immature Gran # 0.02 Nucleated RBCs # 0.00 Immature Plt Fraction 0.0 Sodium 140 Potassium 3.9 Chloride 106 Carbon Dioxide 27 Anion Gap 10.9 BUN 22 H Creatinine 0.70 GFR Calculation 105 BUN/Creatinine Ratio 31.00 H Glucose 106 Calculated Osmolality 281.4 Calcium 9.0 Magnesium 2.0 DS: Provider Date of admission: 10/16/16 22:38 Primary care physician: Armando Barcenas MD Attending physician on admission: Jona Woodard MD Consults: 10/16/16 22:38 Consult to Physician [CONS] Routine Comment: Consulting Provider: Cardiology - [facility] Person Notified: Javier Date Notified: 10/17/16 Time Notified: 07:45 Discharging clinician: Ulises Hernandez MD Expected date of discharge: 10/19/16
--- NOTE | 2016-10-19 11:35 | Cardiology Progress Note ---
<Abeba Rivera E - Last Filed: 10/19/16 11:23> Assessment and Plan - Time spent with patient Time spent with patient: Less than 30 minutes (1) Atrial fibrillation with rapid ventricular response Status: Resolved Assessment and plan: See plan of care listed below. Current Visit: Yes (2) History of atrial fibrillation Status: Chronic Assessment and plan: See plan of care listed below. Current Visit: No (3) Chronic anticoagulation Status: Chronic Assessment and plan: See plan of care listed below. Current Visit: Yes (4) Hypertension Status: Chronic Assessment and plan: See plan of care listed below. Current Visit: Yes Qualifiers: Hypertension type: essential hypertension Qualified Code(s): I10 - Essential (primary) hypertension (5) Dyslipidemia Status: Chronic Assessment and plan: See plan of care listed below. Current Visit: Yes (6) Depression Status: Chronic Current Visit: Yes (7) Bipolar disorder Status: Chronic Current Visit: Yes Cardiology - PN: Subj Interval history: Ramp Service Agent: Dr. Russo PCP: Dr. Barcenas SUMMARY:Ms. Booth is a 65 year old female with a history of paroxysmal atrial fibrillation, on chronic anticoagulation with Eliquis, depression, bipolar disorder, psychocis, and family history of ischemic heart disease. Risk factors are significant for: hypertension, dyslipidemia, obesity, age. She presented to the ER with complaints of not feeling well and was found to be in AFib RVR. We were consulted to see her. The patient is a very tangential historian. She acknowledges that she stopped "some of her medications" in preparation for her shoulder surgery, but cannot really distinguish whether or not is included more than her Eliquis. She has also had social disarray with an ill brother and son. OCTOBER 19, 2016 UPDATE: Her sotalol was resumed and she has converted back to normal sinus rhythm. Yesterday evening, she had some heart rates in the 40s. Her dose of Sotalol was decreased to 80mg PO BID and her Bystolic was held. Today, her rates have been in the 60s. We will continue to hold the Bystolic at discharge. She has had no further complaints. Vital signs have been stable. She will follow up with Dr. Russo in 2-3 weeks with EKG. ASSESSMENT/PLAN: 1. PAROXYSMAL ATRIAL FIBRILLATION WITH RVR - Now in NSR. Will be discharged home on Sotalol 80mg PO BID. 2. CHRONIC ANTICOAGULATION - She is on Eliquis. She had shoulder surgery planned for 10/19/16 but has now had an episode of AFRVR. 3. HYPERTENSION - Currently well controlled. Will continue to monitor and adjust accordingly. 4. DYSLIPIDEMIA - Continue lipid lowering agent. Lipid panel revealed triglycerides 96, cholesterol 179, LDL 93, and HDL 64. 5. DEPRESSION 6. BIPOLAR DISORDER Exam (Progress Note) - Constitutional Vitals: Period Temp Pulse Resp BP Sys/Chacon Pulse Ox Last 24 Hr 97.1 F-97.6 F 48-66 16-20 104-130/55-71 96-99 Exam: General appearance: Pleasant and cooperative. Overweight, no acute distress. - Head Head exam: Present: normal inspection, normocephalic, atraumatic. Absent: hematoma, laceration - Eye Eye exam: Present: EOMI. Absent: conjunctival injection, nystagmus, periorbital swelling, scleral icterus, laceration to eyelids Pupils: Present: PERRL. Absent: constricted, dilated, fixed, irregular, unequal - ENT ENT exam: Present: normal exam, normal external ear exam - Neck Neck exam: Present: normal inspection. Absent: lymphadenopathy, meningismus, tenderness, thyromegaly, carotid bruit - Respiratory Respiratory exam: Present: clear to auscultation bilaterally. Absent: accessory muscle use, chest wall tenderness, rales, rhonchi, wheezing. - Cardiovascular Cardiovascular exam: Present: Regular rate and rhythm. Absent: gallop, rubs, murmur - GI/Abdominal GI/Abdominal exam: Present: normal bowel sounds, soft. Absent: distended, firm , guarding, hernia, mass, tenderness, rebound. - Extremities Exam Extremities exam: Present: normal inspection, normal capillary refill. Upper extremity pulses 2+. Lower extremity pulses 2+. Absent: calf tenderness, edema -Musculoskeletal Exam Musculoskeletal: Present: No Fluid Collection, No Pain, Normal Range of Motion - Back Exam Back exam: Present: normal inspection. Absent: muscle spasm, vertebral tenderness - Neurological Exam Neurological exam: Present: alert, oriented X3, grossly intact without resting or essential tremor - Psychiatric Psychiatric exam: Present: normal affect, normal mood - Skin Skin exam: Present: normal color, warm, dry, intact. Absent: cyanosis, diaphoretic, rash, urticaria Result/EKG - Labs CBC & BMP: 10/19/16 04:31 10/19/16 04:31 Lab Results: I have reviewed the past 24 hour labs Labs: Laboratory Results - last 24 hr 10/19/16 10/19/16 04:31 04:31 WBC 4.9 RBC 3.98 Hgb 12.2 D Hct 36.1 MCV 90.7 MCH 31 MCHC 33.8 RDW 11.8 Plt Count 196 D MPV 10.2 Neut % (Auto) 57.9 Lymph % (Auto) 30.0 [place] % (Auto) 10.5 Eos % (Auto) 1.0 Baso % (Auto) 0.2 Neut # (Auto) 2.8 Lymph # (Auto) 1.5 [place] # (Auto) 0.5 Eos # (Auto) 0.1 Baso # (Auto) 0.0 Immature Gran % 0.4 Nucleated RBC % 0.0 Immature Gran # 0.02 Nucleated RBCs # 0.00 Immature Plt Fraction 0.0 Sodium 140 Potassium 3.9 Chloride 106 Carbon Dioxide 27 Anion Gap 10.9 BUN 22 H Creatinine 0.70 GFR Calculation 105 BUN/Creatinine Ratio 31.00 H Glucose 106 Calculated Osmolality 281.4 Calcium 9.0 Magnesium 2.0 - EKG EKG results: interpreted by me, sinus rhythm Specialty Discharge - Follow Up or Referrals Follow up with: John Russo MD [Physician] - 11/01/16 2:00 pm (Follow up with Dr. Russo in 2 -3 weeks. ) <Pari Short - Last Filed: 10/19/16 17:02> Cardiology - PN: Subj Interval history: I have personally interviewed and evaluated the patient, reviewed the chart and discussed medical decision-making with practitioner Miguel. I have read this note and agree with her documentation here in. Exam (Progress Note) - Constitutional Vitals: Period Temp Pulse Resp BP Sys/Chacon Pulse Ox Last 24 Hr 96.9 F-97.6 F 59-67 16-20 104-130/55-71 96-100 Result/EKG - Labs CBC & BMP: 10/19/16 04:31 10/19/16 04:31 Labs: Laboratory Results - last 24 hr 10/19/16 10/19/16 04:31 04:31 WBC 4.9 RBC 3.98 Hgb 12.2 D Hct 36.1 MCV 90.7 MCH 31 MCHC 33.8 RDW 11.8 Plt Count 196 D MPV 10.2 Neut % (Auto) 57.9 Lymph % (Auto) 30.0 [place] % (Auto) 10.5 Eos % (Auto) 1.0 Baso % (Auto) 0.2 Neut # (Auto) 2.8 Lymph # (Auto) 1.5 [place] # (Auto) 0.5 Eos # (Auto) 0.1 Baso # (Auto) 0.0 Immature Gran % 0.4 Nucleated RBC % 0.0 Immature Gran # 0.02 Nucleated RBCs # 0.00 Immature Plt Fraction 0.0 Sodium 140 Potassium 3.9 Chloride 106 Carbon Dioxide 27 Anion Gap 10.9 BUN 22 H Creatinine 0.70 GFR Calculation 105 BUN/Creatinine Ratio 31.00 H Glucose 106 Calculated Osmolality 281.4 Calcium 9.0 Magnesium 2.0
[2016-10-19 15:52] VITALS: BP 124/61
== END 2016-10-19 17:49 | disposition home or self-care (01) | DRG 310 ==
LOC: N.ED 19:37 → N.EDINP 22:38 → SUATTDRO 22:38 → N.TELES 10-17 00:13
PROVIDERS: ADMIT Internal Medicine; ATTEND Family Medicine

== ENCOUNTER 2017-01-18 05:31 | Inpatient (IN) ==
[2017-01-04 15:30] LABS: Basophils % 0.2 % (0.0-0.8); Eosinophils # 0.1 10*3/uL (0.0-0.87); Eosinophils % 1.4 % (0.00-10.9); Hematocrit 41.3 VOL% (35.7-47.0); Hemoglobin 14.1 GM/DL (12.0-16.0); Immature Granulocytes % 0.5 %; Immature Granulocytes Absolute 0.02 #; Lymphocytes # 1.5 10*3/uL (1.4-4.0); Lymphocytes % 36.7 % (21.3-54.2); Mean Corpuscular HGB Conc 34.1 GM/DL (32-36); Mean Corpuscular Hemoglobin 31 PG (27-34); Mean Corpuscular Volume 91.6 FL (87-102); Mean Platelet Volume 9.2 FL (9.6-12.0); Monocytes # 0.4 10*3/uL (0.11-0.8); Monocytes % 9.3 % (1.7-12.7); Neutrophils # 2.2 10*3/uL (1.4-7.4); Neutrophils % 51.9 % (38.7-73.9); Platelet Count 212 T/CUMM (130-400); Red Blood Count 4.51 MC/CUMM (3.8-5.5); Red Cell Distribution Width 11.9 % (9.3-17.3); White Blood Count 4.2 T/CUMM (4-12)
[2017-01-04 15:42] LABS: PT Patient Result 10.1 SECS; Partial Thromboplastin Time 27.1 SECS (0-40)
[2017-01-04 15:52] LABS: Apearance,Urine CLEAR (Clear); Bacteria,Urine Occasional /HPF (Few); Bilirubin,Urine Negative (Negative); Blood, Urine Negative (Negative); Glucose,Urine (UA) Negative (Negative); Ketones,Urine Negative (Negative); Mucus,Urine Occasional /LPF (Occasional); Nitrite,Urine Negative (Negative); Protein,Urine Negative; Squamous Epithelial Cell,Urine Occasional /HPF (0-10); Urine Color Yellow (Yellow); Urine Specific Gravity 1.011 (1.001-1.035); Urine Urobilinogen < 2.0 EU/DL (0.2-1.0); WBC,Urine 3 /HPF (0-6)
[2017-01-04 16:19] LABS: Albumin 3.6 G/DL (3.4-5.0); Bilirubin,Total 0.6 MG/DL (0.2-1.0); Calcium 9.7 MG/DL (8.5-10.1); Osmolality,Calculated 278.5 MOS/KG (273-304); Potassium 4.3 MMOL/L (3.5-5.1); Total Protein 7.5 G/DL (6.4-8.3)
[2017-01-18] MEDS ORDERED: DIAZEPAM 5 MG TABLET PO ONE (06:00)
[2017-01-18] MEDS ORDERED: FAMOTIDINE 20 MG TABLET PO ONE (06:00)
[2017-01-18] MEDS ORDERED: VANCOMYCIN INJ 1,000 MG in SODIUM CHLORIDE 0.9% 250 ML IV ONE (06:00)
[2017-01-18] MEDS ORDERED: SCOPOLAMINE 1.5 MG PATCH TRANSDERM ONE (06:06)
[2017-01-18] MEDS ORDERED: VANCOMYCIN 1,000 MG VIAL ONE (06:15)
[2017-01-18] MEDS ORDERED: ceFAZolin 1,000 MG VIAL ONE (06:16)
[2017-01-18] MEDS ORDERED: DIAZEPAM 5 MG TABLET ONE (06:16)
[2017-01-18] MEDS ORDERED: SODIUM CHLORIDE 0.9% 50 ML IV ONE (06:16)
[2017-01-18] MEDS ORDERED: FAMOTIDINE 20 MG TABLET ONE (06:16)
[2017-01-18] MEDS ORDERED: ROPIVACAINE 0.5% 30 ML VIAL ONE (06:34)
[2017-01-18] MEDS: LACTATED RINGERS 1,000 ML IV SCH ×2 (06:40→21:35)
[2017-01-18] MEDS ORDERED: ONDANSETRON 4 MG/2 ML VIAL IV PRN (07:18)
[2017-01-18] MEDS ORDERED: NALOXONE 0.4 MG/ML VIAL IV PRN (07:18)
[2017-01-18] MEDS ORDERED: HYDROmorphone 2 MG/1 ML VIAL IV PRN (07:18)
[2017-01-18] MEDS ORDERED: LACTULOSE 20 GM/30 ML UDCUP PO PRN (07:18)
[2017-01-18] MEDS ORDERED: MAGNESIUM HYDROXIDE SUSP 30 ML UDCUP PO PRN (07:18)
[2017-01-18] MEDS ORDERED: PROMETHAZINE 25 MG/1 ML VIAL IM PRN (07:18)
[2017-01-18] MEDS ORDERED: ACETAMINOPHEN 500 MG TABLET PO PRN (07:21)
[2017-01-18] MEDS ORDERED: LORazepam 1 MG TABLET PO PRN (07:21)
[2017-01-18] MEDS ORDERED: TRANEXAMIC ACID 1,000 MG/10 ML VIAL IV ONE (07:54)
[2017-01-18] MEDS ORDERED: PROPOFOL 200 MG/20 ML VIAL IV ONE (09:23)
[2017-01-18] MEDS ORDERED: fentaNYL 100 MCG/2 ML VIAL ONE (09:24)
[2017-01-18] MEDS ORDERED: MIDAZOLAM 2 MG/2 ML VIAL ONE (09:24)
[2017-01-18] MEDS ORDERED: ONDANSETRON 4 MG/2 ML VIAL ONE (09:24)
[2017-01-18] MEDS ORDERED: NEOSTIGMINE 10 MG/10 ML VIAL ONE (09:24)
[2017-01-18] MEDS ORDERED: GLYCOPYRROLATE 0.4 MG/2 ML VIAL ONE (09:24)
[2017-01-18] MEDS ORDERED: DESFLURANE 1 UNIT/15 MINUTE INH ONE (09:24)
[2017-01-18] MEDS ORDERED: PHENYLEPHRINE DRIP 20 MG/250 ML PREMIX IV ONE (09:24)
[2017-01-18] MEDS ORDERED: ROCURONIUM 100 MG/10 ML VIAL IV ONE (09:25)
[2017-01-18] MEDS ORDERED: LACTATED RINGERS 1,000 ML IV ONE (09:25)
[2017-01-18] MEDS: SOTALOL 80 MG TABLET PO SCH ×2 (10:51→20:18)
[2017-01-18] MEDS: LEVOTHYROXINE 88 MCG TABLET PO SCH (10:51)
[2017-01-18] MEDS: NEBIVOLOL 5 MG TABLET PO SCH (10:51)
[2017-01-18] MEDS: ASCORBIC ACID 500 MG TABLET PO SCH ×2 (10:51→20:18)
[2017-01-18] MEDS: MAGNESIUM CHLORIDE 64 MG TABLET PO SCH ×2 (10:51→20:18)
[2017-01-18] MEDS: APIXABAN 5 MG TABLET PO SCH ×2 (10:51→20:18)
[2017-01-18] MEDS ORDERED: INFLUENZA VIRUS VACCINE 0.5 ML SYRINGE IM ONE (11:21)
[2017-01-18] MEDS: HYDROmorphone PCA 30 MG/30 ML SYRINGE IV SCH (11:56)
[2017-01-18] MEDS: PRAVASTATIN 20 MG TABLET PO SCH (20:17)
[2017-01-18] MEDS: rOPINIRole 1 MG TABLET PO SCH (20:17)
[2017-01-18] MEDS: PANTOPRAZOLE 40 MG TABLET PO SCH (20:17)
[2017-01-18] MEDS: IMIPRAMINE 50 MG TABLET PO SCH (20:18)
[2017-01-19 05:09] LABS: Basophils % 0.1 % (0.0-0.8); Eosinophils # 0.2 10*3/uL (0.0-0.87); Eosinophils % 1.6 % (0.00-10.9); Hematocrit 36.9 VOL% (35.7-47.0); Hemoglobin 12.2 GM/DL (12.0-16.0); Immature Granulocytes % 0.3 %; Immature Granulocytes Absolute 0.03 #; Lymphocytes # 0.7 10*3/uL (1.4-4.0); Lymphocytes % 7.5 % (21.3-54.2); Mean Corpuscular HGB Conc 33.1 GM/DL (32-36); Mean Corpuscular Hemoglobin 31 PG (27-34); Mean Corpuscular Volume 92.5 FL (87-102); Mean Platelet Volume 9.8 FL (9.6-12.0); Monocytes # 0.8 10*3/uL (0.11-0.8); Neutrophils # 7.8 10*3/uL (1.4-7.4); Neutrophils % 82.5 % (38.7-73.9); Platelet Count 201 T/CUMM (130-400); Red Blood Count 3.99 MC/CUMM (3.8-5.5); Red Cell Distribution Width 12.1 % (9.3-17.3); White Blood Count 9.5 T/CUMM (4-12)
[2017-01-19] MEDS: HYDROmorphone PCA 30 MG/30 ML SYRINGE IV SCH (08:09)
[2017-01-19] MEDS: LACTATED RINGERS 1,000 ML IV SCH (08:10)
[2017-01-19] MEDS: SOTALOL 80 MG TABLET PO SCH ×2 (09:17→20:34)
[2017-01-19] MEDS: MAGNESIUM CHLORIDE 64 MG TABLET PO SCH ×2 (09:17→20:35)
[2017-01-19] MEDS: APIXABAN 5 MG TABLET PO SCH ×2 (09:18→20:35)
[2017-01-19] MEDS: LEVOTHYROXINE 88 MCG TABLET PO SCH (09:18)
[2017-01-19] MEDS: ASCORBIC ACID 500 MG TABLET PO SCH ×2 (09:18→20:35)
[2017-01-19] MEDS: NEBIVOLOL 5 MG TABLET PO SCH (09:18)
[2017-01-19] MEDS: PANTOPRAZOLE 40 MG TABLET PO SCH (20:34)
[2017-01-19] MEDS: PRAVASTATIN 20 MG TABLET PO SCH (20:35)
[2017-01-19] MEDS: rOPINIRole 1 MG TABLET PO SCH (20:35)
[2017-01-19] MEDS: IMIPRAMINE 50 MG TABLET PO SCH (20:36)
[2017-01-20] MEDS: LEVOTHYROXINE 88 MCG TABLET PO SCH (09:29)
[2017-01-20] MEDS: ASCORBIC ACID 500 MG TABLET PO SCH (09:30)
[2017-01-20] MEDS: MAGNESIUM CHLORIDE 64 MG TABLET PO SCH (09:31)
[2017-01-20] MEDS: SOTALOL 80 MG TABLET PO SCH (09:31)
[2017-01-20] MEDS: APIXABAN 5 MG TABLET PO SCH (09:31)
[2017-01-20] MEDS: NEBIVOLOL 5 MG TABLET PO SCH (09:31)
[2017-01-20 17:09] VITALS: BP 126/66
== END 2017-01-20 15:30 | disposition home health service (06) | DRG 483 ==
LOC: N.SDSINP 05:31 → N.3E 10:05
PROVIDERS: ADMIT Orthopaedic Surgery; ATTEND Orthopaedic Surgery

== ENCOUNTER 2017-08-24 15:22 | Inpatient (IN) ==
[2017-08-24] MEDS ORDERED: DILTIAZEM 50 MG/10 ML VIAL IV STA (16:39)
[2017-08-24] MEDS ORDERED: SODIUM CHLORIDE 0.9% 500 ML IV STA (16:39)
[2017-08-24] MEDS ORDERED: PANTOPRAZOLE 40 MG VIAL IV STA (16:39)
[2017-08-24 17:43] LABS: Basophils % 0.4 % (0.0-0.8); Eosinophils # 0.1 10*3/uL (0.0-0.87); Eosinophils % 0.9 % (0.00-10.9); Hematocrit 39.7 VOL% (35.7-47.0); Hemoglobin 12.9 GM/DL (12.0-16.0); Immature Granulocytes % 0.4 %; Immature Granulocytes Absolute 0.02 #; Lymphocytes # 1.4 10*3/uL (1.4-4.0); Lymphocytes % 26.3 % (21.3-54.2); Mean Corpuscular HGB Conc 32.5 GM/DL (32-36); Mean Corpuscular Hemoglobin 31 PG (27-34); Mean Corpuscular Volume 95.7 FL (87-102); Mean Platelet Volume 10.6 FL (9.6-12.0); Monocytes # 0.4 10*3/uL (0.11-0.8); Neutrophils # 3.5 10*3/uL (1.4-7.4); Platelet Count 180 T/CUMM (130-400); Red Blood Count 4.15 MC/CUMM (3.8-5.5); Red Cell Distribution Width 12.8 % (9.3-17.3); White Blood Count 5.4 T/CUMM (4-12)
[2017-08-24 17:53] LABS: PT Patient Result 10.9 SECS; Partial Thromboplastin Time 24.4 SECS (0-40)
[2017-08-24 18:06] LABS: Alanine Aminotransferase 45 U/L (13-56); Albumin 3.4 G/DL (3.4-5.0); Alkaline Phosphatase 85 U/L (45-117); Aspartate Amino Transferase 31 U/L (0-37); Blood Urea Nitrogen 20 MG/DL (7-18); Calcium 9.2 MG/DL (8.5-10.1); Glucose 110 MG/DL (74-106); Potassium 4.3 MMOL/L (3.5-5.1); Sodium 143 MMOL/L (136-145); Total Protein 6.9 G/DL (6.4-8.3)
[2017-08-24] MEDS ORDERED: DOCUSATE SODIUM 100 MG CAPSULE PO PRN (19:05)
[2017-08-24] MEDS ORDERED: ONDANSETRON 4 MG/2 ML VIAL IV PRN (19:05)
[2017-08-24] MEDS ORDERED: LACTULOSE 20 GM/30 ML UDCUP PO PRN (19:05)
[2017-08-24] MEDS ORDERED: diphenhydrAMINE 50 MG/1 ML VIAL IV PRN (19:10)
[2017-08-24] MEDS ORDERED: ACETAMINOPHEN 325 MG TABLET PO PRN (19:10)
[2017-08-24] MEDS ORDERED: SODIUM CHLORIDE 0.9% 1,000 ML IV PRN (19:10)
[2017-08-24] MEDS: DILTIAZEM INJ 100 MG in SODIUM CHLORIDE 0.9% 100 ML IV SCH (19:26)
[2017-08-24] MEDS ORDERED: FUROSEMIDE 40 MG/4 ML VIAL IV STA (20:37)
[2017-08-24 20:57] LABS: Hematocrit 39.2 VOL% (35.7-47.0); Hemoglobin 12.7 GM/DL (12.0-16.0)
[2017-08-24] MEDS: clonazePAM 0.5 MG TABLET PO SCH (22:32)
[2017-08-24] MEDS: MAGNESIUM CHLORIDE 64 MG TABLET PO SCH (22:32)
[2017-08-24] MEDS: SOTALOL 80 MG TABLET PO SCH (22:33)
[2017-08-24] MEDS: IMIPRAMINE 50 MG TABLET PO SCH (22:33)
[2017-08-24] MEDS: rOPINIRole 1 MG TABLET PO SCH (22:33)
[2017-08-24] MEDS: LORazepam 1 MG TABLET PO SCH (22:33)
[2017-08-24] MEDS: PANTOPRAZOLE 40 MG VIAL IV SCH (22:34)
[2017-08-25 01:43] LABS: Basophils % 0.3 % (0.0-0.8); Eosinophils # 0.1 10*3/uL (0.0-0.87); Eosinophils % 1.4 % (0.00-10.9); Hematocrit 40.1 VOL% (35.7-47.0); Hematocrit 41.2 VOL% (35.7-47.0); Hemoglobin 13.5 GM/DL (12.0-16.0); Hemoglobin 13.7 GM/DL (12.0-16.0); Immature Granulocytes % 0.2 %; Immature Granulocytes Absolute 0.01 #; Lymphocytes # 1.2 10*3/uL (1.4-4.0); Lymphocytes % 18.7 % (21.3-54.2); Mean Corpuscular HGB Conc 32.8 GM/DL (32-36); Mean Corpuscular Hemoglobin 31 PG (27-34); Mean Corpuscular Volume 94.5 FL (87-102); Mean Platelet Volume 10.7 FL (9.6-12.0); Monocytes # 0.5 10*3/uL (0.11-0.8); Monocytes % 7.2 % (1.7-12.7); Neutrophils # 4.7 10*3/uL (1.4-7.4); Neutrophils % 72.2 % (38.7-73.9); Platelet Count 189 T/CUMM (130-400); Red Blood Count 4.36 MC/CUMM (3.8-5.5); Red Cell Distribution Width 12.7 % (9.3-17.3); White Blood Count 6.5 T/CUMM (4-12)
[2017-08-25 02:14] LABS: Calcium 8.8 MG/DL (8.5-10.1); Potassium 3.5 MMOL/L (3.5-5.1); Risk Ratio 2.26; VLDL CHOLESTEROL 20.8 MG/DL
[2017-08-25 03:15] LABS: PT Patient Result 10.9 SECS
[2017-08-25 07:31] LABS: Hematocrit 38.7 VOL% (35.7-47.0); Hemoglobin 12.8 GM/DL (12.0-16.0)
[2017-08-25] MEDS: SODIUM CHLORIDE 0.9% 1,000 ML IV SCH ×2 (08:22→11:08)
[2017-08-25] MEDS: LEVOTHYROXINE 88 MCG TABLET PO SCH (08:24)
[2017-08-25] MEDS ORDERED: PNEUMOCOCCAL VACCINE (13 VALENT) 0.5 ML SYRINGE IM ONE (09:00)
[2017-08-25] MEDS: PANTOPRAZOLE 40 MG VIAL IV SCH ×2 (09:24→21:05)
[2017-08-25] MEDS: SOTALOL 80 MG TABLET PO SCH ×3 (10:34→21:02)
[2017-08-25] MEDS: MAGNESIUM CHLORIDE 64 MG TABLET PO SCH ×3 (10:34→21:02)
[2017-08-25] MEDS: DILTIAZEM INJ 100 MG in SODIUM CHLORIDE 0.9% 100 ML IV SCH ×2 (11:08→17:26)
[2017-08-25 13:10] LABS: Hematocrit 41.5 VOL% (35.7-47.0); Hemoglobin 13.6 GM/DL (12.0-16.0)
[2017-08-25] MEDS: clonazePAM 0.5 MG TABLET PO SCH (21:02)
[2017-08-25] MEDS: rOPINIRole 1 MG TABLET PO SCH (21:02)
[2017-08-25] MEDS: IMIPRAMINE 50 MG TABLET PO SCH (21:05)
[2017-08-25] MEDS: LORazepam 1 MG TABLET PO SCH (21:05)
[2017-08-25] MEDS: ALBUTEROL/IPRATROPIUM 3 ML NEB RESP TX PRN (23:22)
[2017-08-26] MEDS: DILTIAZEM INJ 100 MG in SODIUM CHLORIDE 0.9% 100 ML IV SCH ×3 (05:33→21:49)
[2017-08-26] MEDS: SODIUM CHLORIDE 0.9% 1,000 ML IV SCH ×4 (05:34→21:48)
[2017-08-26 06:01] LABS: Basophils % 0.2 % (0.0-0.8); Eosinophils # 0.1 10*3/uL (0.0-0.87); Eosinophils % 2.6 % (0.00-10.9); Hematocrit 35.4 VOL% (35.7-47.0); Hemoglobin 12.1 GM/DL (12.0-16.0); Immature Granulocytes % 0.2 %; Immature Granulocytes Absolute 0.01 #; Lymphocytes # 1.6 10*3/uL (1.4-4.0); Mean Corpuscular HGB Conc 34.2 GM/DL (32-36); Mean Corpuscular Hemoglobin 31 PG (27-34); Mean Corpuscular Volume 91.7 FL (87-102); Mean Platelet Volume 11.1 FL (9.6-12.0); Monocytes # 0.5 10*3/uL (0.11-0.8); Monocytes % 11.2 % (1.7-12.7); Neutrophils # 2.1 10*3/uL (1.4-7.4); Neutrophils % 48.8 % (38.7-73.9); Platelet Count 166 T/CUMM (130-400); Red Blood Count 3.86 MC/CUMM (3.8-5.5); Red Cell Distribution Width 12.3 % (9.3-17.3); White Blood Count 4.3 T/CUMM (4-12)
[2017-08-26] MEDS: LEVOTHYROXINE 88 MCG TABLET PO SCH (06:11)
[2017-08-26 06:16] LABS: INR 1.1; PT Patient Result 11.4 SECS
[2017-08-26 06:23] LABS: Calcium 8.4 MG/DL (8.5-10.1); Potassium 3.1 MMOL/L (3.5-5.1)
[2017-08-26] MEDS: POTASSIUM CHLORIDE 20 MEQ TABLET PO PRN (07:00)
[2017-08-26] MEDS: PANTOPRAZOLE 40 MG VIAL IV SCH ×2 (08:58→20:44)
[2017-08-26] MEDS: MAGNESIUM CHLORIDE 64 MG TABLET PO SCH ×2 (08:58→20:44)
[2017-08-26] MEDS: SOTALOL 80 MG TABLET PO SCH ×2 (08:58→20:43)
[2017-08-26] MEDS: POTASSIUM CHLORIDE RIDER 10 MEQ in PREMIX 1 EACH IV SCH ×2 (10:27→12:28)
[2017-08-26] MEDS: rOPINIRole 1 MG TABLET PO SCH (20:43)
[2017-08-26] MEDS: IMIPRAMINE 50 MG TABLET PO SCH (20:43)
[2017-08-26] MEDS: LORazepam 1 MG TABLET PO SCH (20:44)
[2017-08-26] MEDS: clonazePAM 0.5 MG TABLET PO SCH (20:47)
[2017-08-27] MEDS: SODIUM CHLORIDE 0.9% 1,000 ML IV SCH (04:14)
[2017-08-27] MEDS: ALBUTEROL/IPRATROPIUM 3 ML NEB RESP TX PRN (05:17)
[2017-08-27 05:47] LABS: Basophils % 0.2 % (0.0-0.8); Eosinophils # 0.1 10*3/uL (0.0-0.87); Eosinophils % 1.5 % (0.00-10.9); Hemoglobin 12.2 GM/DL (12.0-16.0); Immature Granulocytes % 0.4 %; Immature Granulocytes Absolute 0.02 #; Lymphocytes # 1.6 10*3/uL (1.4-4.0); Mean Corpuscular HGB Conc 32.1 GM/DL (32-36); Mean Corpuscular Hemoglobin 31 PG (27-34); Mean Platelet Volume 10.9 FL (9.6-12.0); Monocytes # 0.6 10*3/uL (0.11-0.8); Monocytes % 10.8 % (1.7-12.7); Neutrophils % 57.1 % (38.7-73.9); Platelet Count 177 T/CUMM (130-400); Red Cell Distribution Width 12.5 % (9.3-17.3); White Blood Count 5.3 T/CUMM (4-12)
[2017-08-27] MEDS: LEVOTHYROXINE 88 MCG TABLET PO SCH (05:55)
[2017-08-27 05:58] LABS: PT Patient Result 10.7 SECS
[2017-08-27 06:17] LABS: Osmolality,Calculated 288.8 MOS/KG (273-304)
[2017-08-27] MEDS: MAGNESIUM CHLORIDE 64 MG TABLET PO SCH ×2 (08:43→21:00)
[2017-08-27] MEDS: PANTOPRAZOLE 40 MG VIAL IV SCH ×2 (08:43→21:00)
[2017-08-27] MEDS: SOTALOL 80 MG TABLET PO SCH ×2 (09:09→21:00)
[2017-08-27] MEDS ORDERED: SOTALOL 80 MG TABLET PO ONE (11:06)
[2017-08-27] MEDS ORDERED: FUROSEMIDE 40 MG/4 ML VIAL IV ONE (11:23)
[2017-08-27] MEDS: POTASSIUM CHLORIDE 20 MEQ TABLET PO SCH ×2 (11:41→21:00)
[2017-08-27] MEDS ORDERED: DILTIAZEM 50 MG/10 ML VIAL IV ONE (13:04)
[2017-08-27] MEDS ORDERED: MAGNESIUM SULF RIDER 2 GM in PREMIX 1 EACH IV PRN (13:08)
[2017-08-27] MEDS ORDERED: DILTIAZEM 25 MG/5 ML VIAL IV ONE (13:30)
[2017-08-27] MEDS: DILTIAZEM INJ 100 MG in SODIUM CHLORIDE 0.9% 100 ML IV SCH ×2 (14:16→19:09)
[2017-08-27] MEDS: ASCORBIC ACID 500 MG TABLET PO SCH ×2 (14:17→21:00)
[2017-08-27] MEDS: FUROSEMIDE 40 MG/4 ML VIAL IV SCH (15:32)
[2017-08-27] MEDS: rOPINIRole 1 MG TABLET PO SCH (21:00)
[2017-08-27] MEDS: clonazePAM 0.5 MG TABLET PO SCH (21:01)
[2017-08-27] MEDS: LORazepam 1 MG TABLET PO SCH (21:01)
[2017-08-27] MEDS: IMIPRAMINE 50 MG TABLET PO SCH (22:06)
[2017-08-28] MEDS: ALBUTEROL/IPRATROPIUM 3 ML NEB RESP TX PRN ×2 (02:11→08:05)
[2017-08-28] MEDS: ASCORBIC ACID 500 MG TABLET PO SCH ×2 (09:18→21:19)
[2017-08-28] MEDS: FUROSEMIDE 40 MG/4 ML VIAL IV SCH ×2 (09:19→17:04)
[2017-08-28] MEDS: POTASSIUM CHLORIDE 20 MEQ TABLET PO SCH ×2 (09:19→21:19)
[2017-08-28] MEDS: PANTOPRAZOLE 40 MG VIAL IV SCH ×2 (09:19→21:24)
[2017-08-28] MEDS: SOTALOL 80 MG TABLET PO SCH ×2 (09:20→21:19)
[2017-08-28] MEDS: MAGNESIUM CHLORIDE 64 MG TABLET PO SCH ×2 (09:20→21:19)
[2017-08-28] MEDS: LEVOTHYROXINE 88 MCG TABLET PO SCH (09:20)
[2017-08-28 10:03] LABS: Osmolality,Calculated 283.1 MOS/KG (273-304); Potassium 3.7 MMOL/L (3.5-5.1)
[2017-08-28] MEDS: DILTIAZEM INJ 100 MG in SODIUM CHLORIDE 0.9% 100 ML IV SCH (15:49)
[2017-08-28] MEDS: clonazePAM 0.5 MG TABLET PO SCH (21:18)
[2017-08-28] MEDS: LORazepam 1 MG TABLET PO SCH (21:19)
[2017-08-28] MEDS: IMIPRAMINE 50 MG TABLET PO SCH (21:21)
[2017-08-28] MEDS: rOPINIRole 1 MG TABLET PO SCH (21:28)
[2017-08-29 05:43] LABS: Calcium 9.1 MG/DL (8.5-10.1); Osmolality,Calculated 284.3 MOS/KG (273-304); Potassium 3.5 MMOL/L (3.5-5.1)
[2017-08-29] MEDS ORDERED: NALOXONE 0.4 MG/ML VIAL ONE (08:53)
[2017-08-29] MEDS ORDERED: FLUMAZENIL 0.5 MG/5 ML VIAL IV ONE (08:54)
[2017-08-29] MEDS ORDERED: MIDAZOLAM 10 MG/2 ML VIAL ONE ×2 (08:54)
[2017-08-29] MEDS ORDERED: MEPERIDINE 50 MG/1 ML VIAL ONE (08:54)
[2017-08-29] MEDS: FUROSEMIDE 40 MG/4 ML VIAL IV SCH ×2 (10:05→16:52)
[2017-08-29] MEDS: PANTOPRAZOLE 40 MG VIAL IV SCH ×2 (10:05→20:59)
[2017-08-29] MEDS: LEVOTHYROXINE 88 MCG TABLET PO SCH (10:06)
[2017-08-29] MEDS: ASCORBIC ACID 500 MG TABLET PO SCH ×2 (10:06→20:58)
[2017-08-29] MEDS: SOTALOL 80 MG TABLET PO SCH ×2 (10:06→20:58)
[2017-08-29] MEDS: APIXABAN 5 MG TABLET PO SCH ×2 (10:07→20:59)
[2017-08-29] MEDS: POTASSIUM CHLORIDE 20 MEQ TABLET PO SCH ×2 (10:07→20:59)
[2017-08-29] MEDS: MAGNESIUM CHLORIDE 64 MG TABLET PO SCH ×2 (10:07→20:58)
[2017-08-29] MEDS: DILTIAZEM INJ 100 MG in SODIUM CHLORIDE 0.9% 100 ML IV SCH ×2 (13:20→22:26)
[2017-08-29] MEDS: DIGOXIN 0.5 MG/2 ML AMP IV SCH ×2 (16:52→23:19)
[2017-08-29] MEDS: POTASSIUM CHLORIDE 20 MEQ TABLET PO PRN ×2 (19:00→23:19)
[2017-08-29] MEDS: clonazePAM 0.5 MG TABLET PO SCH (20:58)
[2017-08-29] MEDS: IMIPRAMINE 50 MG TABLET PO SCH (20:58)
[2017-08-29] MEDS: LORazepam 1 MG TABLET PO SCH (20:59)
[2017-08-29] MEDS: rOPINIRole 1 MG TABLET PO SCH (21:01)
[2017-08-30] MEDS: LEVOTHYROXINE 88 MCG TABLET PO SCH (06:41)
[2017-08-30] MEDS: POTASSIUM CHLORIDE 20 MEQ TABLET PO SCH ×2 (08:48→21:38)
[2017-08-30] MEDS: POTASSIUM CHLORIDE 20 MEQ TABLET PO PRN (08:48)
[2017-08-30] MEDS: MAGNESIUM CHLORIDE 64 MG TABLET PO SCH ×2 (08:48→21:37)
[2017-08-30] MEDS: SOTALOL 80 MG TABLET PO SCH ×2 (08:48→21:36)
[2017-08-30] MEDS: APIXABAN 5 MG TABLET PO SCH ×2 (08:49→21:38)
[2017-08-30] MEDS: ASCORBIC ACID 500 MG TABLET PO SCH ×2 (08:49→21:37)
[2017-08-30] MEDS: PANTOPRAZOLE 40 MG VIAL IV SCH ×2 (08:49→21:39)
[2017-08-30] MEDS: FUROSEMIDE 40 MG/4 ML VIAL IV SCH ×2 (08:49→15:28)
[2017-08-30] MEDS: DILTIAZEM CD 120 MG CAPSULE PO SCH ×2 (10:30→21:37)
[2017-08-30 10:41] LABS: Basophils % 0.4 % (0.0-0.8); Lymphocytes # 1.7 10*3/uL (1.4-4.0)
[2017-08-30 10:45] LABS: Eosinophils # 0.2 10*3/uL (0.0-0.87); Hematocrit 46.5 VOL% (35.7-47.0); Immature Granulocytes % 0.4 %; Immature Granulocytes Absolute 0.02 #; Lymphocytes % 35.3 % (21.3-54.2); Mean Corpuscular HGB Conc 32.9 GM/DL (32-36); Mean Corpuscular Hemoglobin 31 PG (27-34); Mean Corpuscular Volume 93.6 FL (87-102); Mean Platelet Volume 10.3 FL (9.6-12.0); Monocytes # 0.5 10*3/uL (0.11-0.8); Monocytes % 11.1 % (1.7-12.7); Neutrophils # 2.3 10*3/uL (1.4-7.4); Neutrophils % 48.8 % (38.7-73.9); Platelet Count 224 T/CUMM (130-400); White Blood Count 4.7 T/CUMM (4-12)
[2017-08-30 10:50] LABS: Hemoglobin 15.3 GM/DL (12.0-16.0); Red Blood Count 4.97 MC/CUMM (3.8-5.5)
[2017-08-30 11:07] LABS: Calcium 9.3 MG/DL (8.5-10.1); Osmolality,Calculated 280.7 MOS/KG (273-304); Potassium 3.7 MMOL/L (3.5-5.1)
[2017-08-30] MEDS ORDERED: ACETAMINOPHEN 325 MG TABLET PO PRN (12:52)
[2017-08-30] MEDS ORDERED: DIGOXIN 0.125 MG TABLET PO SCH (13:00)
[2017-08-30] MEDS ORDERED: PRAVASTATIN 20 MG TABLET PO SCH (21:00)
[2017-08-30] MEDS: rOPINIRole 1 MG TABLET PO SCH (21:37)
[2017-08-30] MEDS: clonazePAM 0.5 MG TABLET PO SCH (21:37)
[2017-08-30] MEDS: IMIPRAMINE 50 MG TABLET PO SCH (21:38)
[2017-08-30] MEDS: LORazepam 1 MG TABLET PO SCH (21:38)
[2017-08-31] MEDS: LEVOTHYROXINE 88 MCG TABLET PO SCH (05:47)
[2017-08-31 06:05] LABS: Basophils % 0.4 % (0.0-0.8); Eosinophils # 0.2 10*3/uL (0.0-0.87); Eosinophils % 3.2 % (0.00-10.9); Hematocrit 45.8 VOL% (35.7-47.0); Hemoglobin 15.5 GM/DL (12.0-16.0); Immature Granulocytes % 0.2 %; Immature Granulocytes Absolute 0.01 #; Lymphocytes % 38.6 % (21.3-54.2); Mean Corpuscular HGB Conc 33.8 GM/DL (32-36); Mean Corpuscular Hemoglobin 31 PG (27-34); Mean Corpuscular Volume 91.1 FL (87-102); Mean Platelet Volume 11.1 FL (9.6-12.0); Monocytes # 0.6 10*3/uL (0.11-0.8); Monocytes % 11.7 % (1.7-12.7); Neutrophils # 2.4 10*3/uL (1.4-7.4); Neutrophils % 45.9 % (38.7-73.9); Platelet Count 215 T/CUMM (130-400); Red Blood Count 5.03 MC/CUMM (3.8-5.5); Red Cell Distribution Width 12.2 % (9.3-17.3); White Blood Count 5.3 T/CUMM (4-12)
[2017-08-31 06:14] LABS: Calcium 9.5 MG/DL (8.5-10.1); Osmolality,Calculated 280.7 MOS/KG (273-304); Potassium 4.1 MMOL/L (3.5-5.1)
[2017-08-31] MEDS ORDERED: FLUMAZENIL 0.5 MG/5 ML VIAL IV ONE (07:07)
[2017-08-31] MEDS ORDERED: MIDAZOLAM 10 MG/2 ML VIAL ONE (07:08)
[2017-08-31] MEDS: POTASSIUM CHLORIDE 20 MEQ TABLET PO SCH (10:29)
[2017-08-31] MEDS: DILTIAZEM CD 120 MG CAPSULE PO SCH (10:29)
[2017-08-31] MEDS: APIXABAN 5 MG TABLET PO SCH (10:29)
[2017-08-31] MEDS: MAGNESIUM CHLORIDE 64 MG TABLET PO SCH (10:29)
[2017-08-31] MEDS: SOTALOL 80 MG TABLET PO SCH (10:29)
[2017-08-31] MEDS: ASCORBIC ACID 500 MG TABLET PO SCH (10:29)
[2017-08-31] MEDS: PANTOPRAZOLE 40 MG VIAL IV SCH (10:30)
[2017-08-31] MEDS: FUROSEMIDE 40 MG/4 ML VIAL IV SCH ×2 (10:32→15:57)
[2017-08-31 13:53] VITALS: BP 126/74
== END 2017-08-31 16:14 | disposition home or self-care (01) | DRG 379 ==
LOC: N.ED 15:22 → N.EDINP 19:05 → N.TELEN 21:44
PROVIDERS: ADMIT Internal Medicine; ATTEND Internal Medicine